=== PATIENT | female | born 1935 | race Caucasian/White ===

== ENCOUNTER 2020-07-23 07:03 | Day surgery (SDC) | payer OTHER ==
[~2020-07-23] VITALS: Ht 160 cm; Wt 77.1 kg
[~2020-07-23 07:03] MED LIST: ATO40T PO; METO25TA5 PO; [UNRECOGNIZED DRUG - CODE] PO
[2020-07-23] MEDS ORDERED: fentaNYL CITRATE 100 MCG/2 ML VL ONE (08:14)
[2020-07-23] MEDS ORDERED: MIDAZOLAM HCL 1MG/1ML-2 ML VIAL ONE (08:14)
[2020-07-23] MEDS ORDERED: diphenhdrAMINE HCL 50 MG/1 ML VL ONE (08:15)
[2020-07-23] MEDS ORDERED: LIDOCAINE VISCOUS 2% 15ML UD ONE (08:15)
== END 2020-07-23 11:15 | disposition home or self-care (01) ==
LOC: CATH 07:03
PROVIDERS: ATTEND Internal Medicine
DX: Z01.810 Encounter for preprocedural cardiovascular examination (principal); I34.1 Nonrheumatic mitral (valve) prolapse; R00.2 Palpitations; I27.20 Pulmonary hypertension, unspecified; M79.7 Fibromyalgia; Z68.30 Body mass index [BMI] 30.0-30.9, adult; Z20.822 Contact with and (suspected) exposure to COVID-19; Z88.8 Allergy status to other drugs, medicaments and biological substances; Z91.048 Other nonmedicinal substance allergy status
CPT/HCPCS: 93312; J1644; J2250; J3010; U0003; 99152

== ENCOUNTER 2023-05-15 08:47 | Inpatient (IN) | payer OTHER ==
[~2023-05-15] VITALS: Ht 160 cm; Wt 74.7 kg
[~2023-05-15 08:47] MED LIST changes: +NITR1SUS3 PO; -[UNRECOGNIZED DRUG - CODE] PO
[2023-05-15 09:20] LABS: Basophils # (auto) 0.1 10 ^3/uL (0-0.2); Basophils % (auto) 0.7 % (0.0-2.0); Eosinophils # (auto) 0 10 ^3/uL (0-0.8); Eosinophils % (auto) 0.4 % (0.0-7.0); Hematocrit 44.6 % (36.0-46.0); Hemoglobin 14.7 g/dL (12.2-16.2); Lymphocytes # (auto) 0.9 10 ^3/uL (0.4-5.4); Lymphocytes % (auto) 8.9 % (10.0-50.0); Mean Corpuscular Hemoglobin 27.5 pg (28.0-32.0); Mean Corpuscular Hgb Conc. 33.1 g/dL (32.0-36.0); Monocytes # (auto) 0.6 10 ^3/uL (0-1.3); Monocytes % (auto) 5.6 % (0.0-12.0); Neutrophils # (auto) 8.4 10 ^3/uL (1.6-8.6); Neutrophils % (auto) 84.4 % (37.0-80.0); Red Blood Cells 5.37 10^6/uL (4.0-5.20)
[2023-05-15 09:35] LABS: Alanine Aminotransferase 10 U/L (7-40); Albumin 4.7 g/dL (3.2-4.8); Alkaline Phosphatase 67 U/L (46-116); Anion Gap 8 (5-15); Aspartate Aminotransferase 16 U/L (13-40); BUN/Creatinine Ratio 24.7 (10.0-20.0); Bilirubin, Total 1.7 mg/dL (0.2-1.0); Blood Urea Nitrogen 18 mg/dL (9-23); Calcium 9.9 mg/dL (8.5-10.1); Carbon Dioxide 26 mmol/L (20-30); Chloride 105 mmol/L (98-107); Glucose 111 mg/dL (74-106); Potassium 3.7 mmol/L (3.5-5.1); Sodium 139 mmol/L (136-145); Total Protein 6.7 g/dL (5.7-8.2)
[2023-05-15 09:36] LABS: INR 1.09 (0.9-1.15); Partial Thromboplastin Time 31.5 SEC (24.5-34.5); Prothrombin Time 11.4 sec (9.3-11.8)
[2023-05-15] MEDS ORDERED: NITROGLYCERIN 0.4 MG SL TAB SL ONE (09:45)
[2023-05-15 10:14] VITALS: PULSE 70; RESP 16; O2SAT 98
[2023-05-15 10:47] LABS: Magnesium 1.9 mg/dL (1.6-2.6)
[2023-05-15] MEDS ORDERED: FUROSEMIDE 20 MG/2 ML VIAL IV ONE (12:30)
[2023-05-15 14:39] LABS: Urine Bacteria NONE SEEN /hpf (None Seen); Urine Blood Negative /uL (Negative); Urine Clarity Clear (Clear); Urine Color Colorless (Yellow); Urine Protein, UAD Negative (Negative); Urine Specific Gravity 1.005 (1.001-1.035); Urine Urobilinogen Normal (Negative); Urine WBC <1 /hpf (0 - 5); Urine pH 6.5 (5.0-8.0)
[2023-05-15] MEDS ORDERED: ONDANSETRON HCL 4 MG/2 ML VIAL IV PRN (16:45)
[2023-05-15] MEDS ORDERED: NITROGLYCERIN 0.4 MG SL TAB SL PRN (16:45)
[2023-05-15] MEDS ORDERED: MORPHINE SULFATE INJ 2 MG/ml SYRG IV PRN ×2 (16:45)
[2023-05-15] MEDS ORDERED: ACETAMINOPHEN 325 MG TAB PO PRN (16:45)
[2023-05-15] MEDS ORDERED: HYDROcodone-ACET 5/325MG TAB PO PRN (16:45)
[2023-05-15 18:50] VITALS: PULSE 93; RESP 18; O2SAT 95
[2023-05-15] MEDS ORDERED: TRIA75TA55 PO (19:52)
[2023-05-15] MEDS ORDERED: APIX2.5T PO (19:52)
[2023-05-15] MEDS ORDERED: ROSU20TA14 PO (19:52)
[2023-05-15] MEDS ORDERED: HYDR-4227 PO (19:52)
[2023-05-15 20:00] VITALS: PULSE 106; PULSE 49; RESP 18; O2SAT 94
[2023-05-15 22:00] VITALS: BP 106/44; PULSE 87; RESP 20; TEMP 97.6; O2SAT 94
[2023-05-15] MEDS ORDERED: ENOXAPARIN SOD 100 MG/1 ML SYRINGE SC ONE (23:45)
[2023-05-16] VITALS (8 sets, daily range): BP systolic 96–129; BP diastolic 52–62; PULSE 59–83; RESP 16–20; TEMP 96–98.7; O2SAT 92–98
[2023-05-16] MEDS ORDERED: AMIODARONE 450mg/250ml AE 250 ML IV SCH (00:45)
[2023-05-16] MEDS ORDERED: AMIODARONE BOLUS KIT 100 ML IV ONE (00:45)
[2023-05-16 01:04] LABS: Alanine Aminotransferase 11 U/L (7-40); Albumin 4.2 g/dL (3.2-4.8); Alkaline Phosphatase 62 U/L (46-116); Calcium 9.1 mg/dL (8.7-10.4); Carbon Dioxide 22 mmol/L (20-30); Chloride 107 mmol/L (98-107); Glucose 108 mg/dL (74-106); Potassium 3.2 mmol/L (3.5-5.1); Sodium 139 mmol/L (136-145)
[2023-05-16 01:05] LABS: Anion Gap 10 (5-15); Aspartate Aminotransferase 15 U/L (13-40); BUN/Creatinine Ratio 21.2 (10.0-20.0); Bilirubin, Total 1.8 mg/dL (0.2-1.0); Blood Urea Nitrogen 18 mg/dL (9-23); Total Protein 6.1 g/dL (5.7-8.2)
[2023-05-16] MEDS ORDERED: POTASSIUM CHL 20 Meq TABLET PO ONE (05:45)
[2023-05-16] MEDS: AMIODARONE 450mg/250ml AE 250 ML IV SCH (07:21)
[2023-05-16] MEDS ORDERED: ENOXAPARIN SOD 40 MG/0.4 ML SYRINGE SC SCH (10:00)
[2023-05-16] MEDS ORDERED: ENOXAPARIN SOD 80 MG/0.8ML SYRINGE SC SCH (10:00)
[2023-05-16] MEDS: ATORVASTATIN 20 MG TAB PO SCH (10:57)
[2023-05-16] MEDS: METOPROLOL SUCCINATE XL 50 MG TAB PO SCH (10:59)
[2023-05-16] MEDS: APIXABAN 5 MG TAB PO SCH (21:16)
[2023-05-17] VITALS (7 sets, daily range): BP systolic 103–140; BP diastolic 58–89; PULSE 51–106; RESP 16–22; TEMP 98–98.7; O2SAT 92–96
[2023-05-17] MEDS: AMIODARONE 450mg/250ml AE 250 ML IV SCH (02:12)
[2023-05-17] MEDS: ATORVASTATIN 20 MG TAB PO SCH (09:56)
[2023-05-17] MEDS: APIXABAN 5 MG TAB PO SCH (09:56)
[2023-05-17] MEDS: METOPROLOL SUCCINATE XL 50 MG TAB PO SCH (09:58)
[2023-05-17] MEDS ORDERED: AMIO200T33 PO (14:51)
[2023-05-17] MEDS ORDERED: APIX5TAB PO (14:51)
[2023-05-17] MEDS ORDERED: AMIODARONE HCL 200 MG TAB PO SCH (15:00)
== END 2023-05-17 18:20 | disposition home or self-care (01) | DRG 309 ==
LOC: ER 08:47 → EDBD 08:47 → EDUNIT# 08:47 → TELE 16:43 → TELE-WESTW 18:32
PROVIDERS: ADMIT Internal Medicine; ATTEND Internal Medicine
DX: I48.20 Chronic atrial fibrillation, unspecified (principal); I50.32 Chronic diastolic (congestive) heart failure; E78.5 Hyperlipidemia, unspecified; I11.0 Hypertensive heart disease with heart failure; I25.10 Atherosclerotic heart disease of native coronary artery without angina pectoris; I25.2 Old myocardial infarction; Z79.899 Other long term (current) drug therapy; Z80.6 Family history of leukemia; Z80.7 Family history of other malignant neoplasms of lymphoid, hematopoietic and related tissues; Z80.8 Family history of malignant neoplasm of other organs or systems; Z82.49 Family history of ischemic heart disease and other diseases of the circulatory system; Z95.5 Presence of coronary angioplasty implant and graft
CPT/HCPCS: 36415; 71045; 80053; 81001; 83735; 83880; 84484; 85025; 85610; 85730; 93005; 93306; 97110; 97116; 97163; 97530; G0378

== ENCOUNTER 2024-08-24 09:42 | Emergency (ER) | payer OTHER ==
[~2024-08-24] VITALS: Ht 154.9 cm; Wt 45.5 kg
[~2024-08-24 09:42] MED LIST changes: +AMIO200T33 PO; +APIX5TAB PO; -ATO40T PO; +ATOR-507 PO; +HYDR-2792 PO; -NITR1SUS3 PO; +ROSU20TA14 PO; +TRIA75TA55 PO
--- NOTE | 2024-08-24 10:45 | ED.PDOC ---
History of Present Illness HPI Comments 89Y F with PMHx Afib, HTN, TX, and blood clot in knee presents to ED via EMS with chief complaint rt foot pain x yesterday. Pt denies chest pain, SOB, n/v/d, abd pain, and all urinary s/s. Per EMS, son is worried about worsening paranoia and delusion. No other symptoms or history reported. Chief Complaint: Lower Extremity Time Seen by MD: 10:12 Primary Care Provider: CAMMOR Reviewed Notes: Nurses Notes, Pie Maker Machine Notes, Medications, Allergies Allergies: Coded Allergies: Bupropion (Verified Allergy, Intermediate, 05/15/23) Uncoded Allergies: TAPE (Allergy, Unknown, 05/17/23) Home Meds Active Scripts Apixaban Base (ELIQUIS) 5 Mg Tab, 5 MG PO BID, #60 TAB Prov:TYRON MAC MD 05/17/23 Amiodarone Hcl (Amiodarone Hcl) 200 Mg Tab, 200 MG PO DAILY, #30 TAB Prov:TYRON MAC MD 05/17/23 Reported Medications Triamterene & Hydrochlorothiaz (Maxzide) 1 Tab Tab, 1 TAB PO DAILY, #30 TAB 5 Refills Triamterene 37.5 MG/ HCTZ 25 MG 05/15/23 Rosuvastatin Calcium (Crestor) 20 Mg Tab, 1 TAB PO HS, #30 TAB 5 Refills 05/15/23 Hydralazine Hcl (Hydralazine Hcl) 10 Mg Tab, 10 MG PO BIDPRN for SBP> 150 for 30 Days, MG 05/15/23 Atorvastatin Calcium (Lipitor) 40 Mg Tab, 40 MG PO DAILY, TAB 07/20/20 Metoprolol Tartrate (Metoprolol Tartrate) 25 Mg Tab, 50 MG PO BID for 30 Days, MG 07/20/20 Information Source: Patient, Emergency Med Personnel Mode of Arrival: EMS Severity: Mild Timing: Days Duration: Since onset Prehospital treatment: None Past Medical History PAST MEDICAL HISTORY: AFIB, HTN, [place] Surgical History: Unobtainable SET UP TECHNICIAN History: Denies all SET UP TECHNICIAN Hx Family History Family History: Reviewed,noncontributory to illness, No family hx of Cancer, No family hx of DM, No family hx of Heart justin, No family hx of HTN, No family hx ofKidney justin, No family hx of Liver justin, No family hx of Lung justin, No family hx of Stroke Social History Smoker: Non-Smoker Alcohol: Denies ETOH Use Drugs: Denies Drug Use Lives In: Home Constitutional: denies: chills, diaphoresis, fatigue, fever, malaise, sweats, weakness, others EENTM: denies: blurred vision, double vision, ear bleeding, ear discharge, ear drainage, ear pain, ear ringing, eye pain, eye redness, hearing loss, mouth pain, mouth swelling, nasal discharge, nose bleeding, nose congestion, nose pain, photophobia, tearing, throat pain, throat swelling, voice changes, others Respiratory: denies: cough, hemoptysis, orthopnea, SOB at rest, shortness of breath, SOB with excertion, stridor, wheezing, others Cardiovascular: denies: chest pain, dizzy spells, diaphoresis, Dyspnea on e xertion, edema, irregular heart beat, left arm pain, lightheadedness, palpitations, PND, syncope, others Gastrointestinal: denies: abdomen distended, abdominal pain, blood streaked bowels, constipated, diarrhea, dysphagia, difficulty swallowing, hematemesis, melena, nausea, poor appetite, poor fluid intake, rectal bleeding, rectal pain, vomiting, others Genitourinary: denies: abnormal vagina bleeding, burning, dyspareunia, dysuria, flank pain, frequency, hematuria, incontinence, pain, , vagina discharge, urgency, others Neurological: denies: dizziness, fainting, headache, left sided numbness, left sided weakness, numbness, paresthesia, pre-existing deficit, right sided numbness, right sided weakness, seizure, speech problems, tingling, tremors, weakness, others Musculoskeletal: reports: others (rt foot pain); denies: back pain, gout, joint pain, joint swelling, muscle pain, muscle stiffness, neck pain Integumetry: denies: bruises, change in color, change in hair/nails, dryness, laceration, lesions, lumps, rash, wounds, others Allergic/Immunocompromised: denies: Difficulty Healing, Frequent Infections, Hives, Itching, others Hematologic/Lymphatic: denies: anemia, blood clots, easy bleeding, easy bruising, swollen glands, others Endocrine: denies: excessive hunger, excessive sweating, excessive thirst, excessive urination, flushing, intolerance to cold, intolerance to heat, unexplained weight gain, unexplained weight loss, others Psychiatric: denies: anxiety, bipolar disorder, depression, hopeless, panic disorder, schizophrenia, sleepless, suicidal, others All Other Systems: Reviewed and Negative Physical Exam General Appearance: No Apparent Distress, Normal HEENT: Normal ENT Inspection, Pharynx Normal, TMs Normal Neck: Full Range of Motion, Non-Tender, Normal, Normal Inspection Respiratory: Chest Non-Tender, Lungs Clear, No Accessory Muscle Use, No Respiratory Distress, Normal Breath Sounds Cardiovascular: No Edema, No JVD, No Murmur, No Gallop, Normal Peripheral Pulses, Regular Rate/Rhythm Breast Exam: Deferred Gastrointestinal: No Organomegaly, Non Tender, No Pulsatile Mass, Normal Bowel Sounds, Soft Genitalia: Deferred Pelvic: Deferred Rectal: Deferred Extremities: No calf tenderness, Normal capillary refill, Normal inspection, Normal range of motion, Non-tender, No pedal edema Musculoskeletal : Location: Right Extremity Location: Foot Apperance: Tenderness Neurologic: Alert, structural layout worker II-XII nml as Tested, No Motor Deficits, Normal Affect, Normal Mood, No Sensory Deficits Cerebellar Function: NOT DONE Reflexes: NOT DONE Skin: Dry, Normal Color, Warm Lymphatic: No Adenopathy Was a procedure done? Was a procedure done?: No Differential Dx Considerations may include: Muscle strain, fracture, sprain X-Ray, Labs, Meds, VS Vital Signs Date Time Temp Pulse Resp B/P (MAP) Pulse Ox O2 Delivery O2 Flow Rate FiO2 08/24/24 13:48 70 16 101/51 (68) 97 08/24/24 12:09 97.7 72 18 94/45 (61) 97 97.7 08/24/24 09:42 97.0 71 18 113/54 (73) 100 97.0 Lab Test 08/24/24 13:55 08/24/24 12:04 08/24/24 10:35 Range/Units Troponin I High Sensitivity 3 L 4 4 </=34 ng/L White Blood Count 8.1 4.4-10.8 10^3/uL Red Blood Count 4.64 4.0-5.20 10^6/uL Hemoglobin 13.2 12.2-16.2 g/dL Hematocrit 39.5 36.0-46.0 % Mean Corpuscular Volume 85.1 80.0-100.0 fL Mean Corpuscular Hemoglobin 28.3 28.0-32.0 pg Mean Corpuscular Hemoglobin Concent 33.3 32.0-36.0 g/dL Red Cell Distribution Width 14.4 H 11.8-14.3 % Platelet Count 232 140-450 10^3/uL Mean Platelet Volume 9.1 6.9-10.8 fL Neutrophils (%) (Auto) 85.6 H 37.0-80.0 % Lymphocytes (%) (Auto) 5.5 L 10.0-50.0 % Monocytes (%) (Auto) 7.9 0.0-12.0 % Eosinophils (%) (Auto) 0.4 0.0-7.0 % Basophils (%) (Auto) 0.6 0.0-2.0 % Neutrophils # (Auto) 7.0 1.6-8.6 10 ^3/uL Lymphocytes # (Auto) 0.4 0.4-5.4 10 ^3/uL Monocytes # (Auto) 0.6 0-1.3 10 ^3/uL Eosinophils # (Auto) 0 0-0.8 10 ^3/uL Basophils # (Auto) 0 0-0.2 10 ^3/uL Nucleated Red Blood Cells 0.0 % Sodium Level 137 136-145 mmol/L Potassium Level 3.8 3.5-5.1 mmol/L Chloride Level 103 98-107 mmol/L Carbon Dioxide Level 28 20-31 mmol/L Anion Gap 6 5-15 Blood Urea Nitrogen 24 H 9-23 mg/dL Creatinine 0.94 0.550-1.02 mg/dL Glomerular Filtration Rate Calc 58 >90 mL/min BUN/Creatinine Ratio 25.5 H 10.0-20.0 Serum Glucose 101 74-106 mg/dL Lactic Acid Level 0.9 0.4-2.0 mmol/L Calcium Level 9.3 8.7-10.4 mg/dL Total Bilirubin 1.2 H 0.2-1.0 mg/dL Aspartate Amino Transferase (AST) 70 H 13-40 U/L Alanine Aminotransferase (ALT) 83 H 7-40 U/L Alkaline Phosphatase 67 46-116 U/L Total Protein 6.7 5.7-8.2 g/dL Albumin 4.2 3.2-4.8 g/dL Lipase 30 12-53 U/L Current Medications Medications (Trade) Dose Ordered Sig/Nikhil Route Start Time Stop Time Status Last Admin Acetaminophen/ Hydrocodone Bitart (Viburnum 5/325MG Tab) 1 tab ONCE ONCE PO 08/24/24 10:30 08/24/24 10:32 DC 08/24/24 12:15 [place] [address] Ph: [phone] DIAGNOSTIC IMAGING Diagnostic Imaging Report : [id number] Signed PATIENT: TRAY KHAN ACCT: [id number] UNIT: [id number] : 1935 LOC: ER ROOM / BED: / AGE / SEX: 89 / F ADM STATUS: REG ER SERVICE 102 ORDERING PHYSICIAN: MP KHAN MD PROCEDURE(s): RFOOT - R FOOT 3 VIEW XRAY REASON: right foot pain ORDER NUMBER(s): [id number], ACCESSION NUMBER(s): [id number] CLINICAL INDICATION: right foot pain TECHNIQUE: 3 radiographic views of the right foot were obtained. Comparison: None FINDINGS/IMPRESSION: Postsurgical changes are visualized in the 1st proximal phalanx. Small plantar and posterior calcaneal enthesophyte. 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 ATED BY: YUAN BOWERS MD DICTATED DATE/TIME: 08/24/24 105 SIGNED BY: YUAN BOWERS MD SIGNED DATE/TIME: 08/24/24 105 CC: [place] [address] Ph: [phone] DIAGNOSTIC IMAGING Diagnostic Imaging Report : [id number] Signed PATIENT: TRAY KHAN ACCT: [id number] UNIT: [id number] : 1935 LOC: ER ROOM / BED: / AGE / SEX: 89 / F ADM STATUS: REG ER SERVICE 102 ORDERING PHYSICIAN: MP KHAN MD PROCEDURE(s): CXRP - CHEST PORTABLE REASON: right foot pain ORDER NUMBER(s): [id number], ACCESSION NUMBER(s): [id number] EXAM: XY CHEST PORTABLE HISTORY: right foot pain 89-year-old female with chest pain. COMPARISON: XY CHEST XRAY 1 VIEW on DOS: 05/15/23; CT scan of the chest dated 07/22/2024 was not made available on the PACS system for viewing. TECHNIQUE: Portable upright AP view of the chest was performed. FINDINGS: No pneumothorax, consolidative infiltrates, or pulmonary edema. The heart is enlarged. Mitral clip is noted. There is thoracic spondylosis and dextroscoliosis. IMPRESSION: 1. No acute intrathoracic process. 2. Cardiomegaly and mitral clip. ATED BY: FARIBA HORAN MD DICTATED DATE/TIME: 08/24/24 1059 SIGNED BY: FARIBA HORAN MD SIGNED DATE/TIME: 08/24/24 1059 CC: Time of 1ST Reevaluation: 10:42 Reevaluation 1ST: Unchanged Patient Education/Counseling: Diagnosis, Treatment Family Education/Counseling: No Family Present Departure 1 Departure Time of Disposition: 15:47 (Patient likely with plantar fasciitis. Patient's workup is otherwise benign. Discharge patient home with outpatient follow up) Impression: Primary Impression: Plantar fasciitis of right foot Disposition: 01 HOME / SELF CARE / HOMELESS Condition: Stable Referrals: ADRIANA KUMAR MD Additional Instructions: You likely have inflammation of your foot. For pain you can take the followinam: Ibuprofen 400mg with food Noon: Acetaminophen 1000mg 4pm: Ibuprofen 400mg with food 8pm: Acetaminophen 1000mg You were referred to orthopedics. Please call for an appointment. You should follow up with your regular doctor within one week to ensure you are doing better. If your symptoms worsen or you have any other concerns then please return to the ER Discharged With: Self Critical Care Note Critical Care Time?: No Stability Stability form required: No Heart Score Heart Score: Heart Score Response (Comments) Value History N/A 0 EKG N/A 0 Age N/A 0 Risk Factors N/A 0 Troponin N/A 0 Total 0 I personally scribed for MP KHAN MD ([email or web address]) on 08/24/24 at 10:45. Electronically submitted by Isa Fragoso ([facility]). I personally scribed for MP KHAN MD ([email or web address]) on 08/24/24 at 11:12. Electronically submitted by Isa Fragoso ([facility]). MP KHAN MD Aug 24, 2024 10:45
--- NOTE | 2024-08-24 10:57 | DVH ---
CLINICAL INDICATION: right foot pain TECHNIQUE: 3 radiographic views of the right foot were obtained. Comparison: None FINDINGS/IMPRESSION: Postsurgical changes are visualized in the 1st proximal phalanx. Small plantar and posterior calcane al enthesophyte. 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
--- NOTE | 2024-08-24 11:02 | DVH ---
EXAM: XY CHEST PORTABLE HISTORY: right foot pain 89-year-old female with chest pain. COMPARISON: XY CHEST XRAY 1 VIEW on DOS: 05/15/23; CT scan of the chest dated 07/22/2024 was not made a vailable on the PACS system for viewing. TECHNIQUE: Portable upright AP view of the chest was performed. FINDINGS: No pneumothorax, consolidative infiltrates, or pulmonary edema. The heart is enlarged. Mitral clip i s noted. There is thoracic spondylosis and dextroscoliosis. IMPRESSION: 1. No acute intrathoracic process. 2. Cardiomegaly and mitral clip.
[2024-08-24 11:06] LABS: Basophils # (auto) 0 10 ^3/uL (0-0.2); Basophils % (auto) 0.6 % (0.0-2.0); Eosinophils # (auto) 0 10 ^3/uL (0-0.8); Eosinophils % (auto) 0.4 % (0.0-7.0); Hematocrit 39.5 % (36.0-46.0); Hemoglobin 13.2 g/dL (12.2-16.2); Lymphocytes # (auto) 0.4 10 ^3/uL (0.4-5.4); Lymphocytes % (auto) 5.5 % (10.0-50.0); Mean Corpuscular Hemoglobin 28.3 pg (28.0-32.0); Mean Corpuscular Hgb Conc. 33.3 g/dL (32.0-36.0); Mean Corpuscular Volume 85.1 fL (80.0-100.0); Monocytes # (auto) 0.6 10 ^3/uL (0-1.3); Monocytes % (auto) 7.9 % (0.0-12.0); Neutrophils % (auto) 85.6 % (37.0-80.0); Platelet Count (auto) 232 10^3/uL (140-450); Red Blood Cells 4.64 10^6/uL (4.0-5.20); Red Cell Distribution Width 14.4 % (11.8-14.3); White Blood Cell 8.1 10^3/uL (4.4-10.8)
[2024-08-24 11:16] LABS: Albumin 4.2 g/dL (3.2-4.8); Alkaline Phosphatase 67 U/L (46-116); Anion Gap 6 (5-15); BUN/Creatinine Ratio 25.5 (10.0-20.0); Calcium 9.3 mg/dL (8.7-10.4); Carbon Dioxide 28 mmol/L (20-31); Chloride 103 mmol/L (98-107); Glucose 101 mg/dL (74-106); Lipase 30 U/L (12-53); Potassium 3.8 mmol/L (3.5-5.1); Sodium 137 mmol/L (136-145); Total Protein 6.7 g/dL (5.7-8.2)
[2024-08-24 11:17] LABS: Bilirubin, Total 1.2 mg/dL (0.2-1.0)
[2024-08-24 11:18] LABS: Alanine Aminotransferase 83 U/L (7-40); Aspartate Aminotransferase 70 U/L (13-40); Blood Urea Nitrogen 24 mg/dL (9-23)
[2024-08-24] MEDS: HYDROcodone-ACET 5/325MG TAB PO ONE (12:15)
[2024-08-24 16:38] VITALS: BP 137/78; PULSE 78; RESP 17; TEMP 98.7; O2SAT 97
== END 2024-08-24 16:43 | disposition home or self-care (01) ==
LOC: ER 09:42 → EDBD 09:42 → EDUNIT# 09:42 → ER 16:40
DX: M72.2 Plantar fascial fibromatosis (principal); I48.91 Unspecified atrial fibrillation; I10 Essential (primary) hypertension; I21.9 Acute myocardial infarction, unspecified; Z79.01 Long term (current) use of anticoagulants; Z79.899 Other long term (current) drug therapy; Z88.8 Allergy status to other drugs, medicaments and biological substances
CPT/HCPCS: 36415; 71045; 73630; 80053; 83605; 83690; 84484; 85025

== ENCOUNTER 2024-11-27 10:42 | Inpatient (IN) | payer OTHER ==
[~2024-11-27] VITALS: Ht 160 cm; Wt 67.1 kg
--- NOTE | 2024-11-27 12:28 | ED.PDOC ---
History of Present Illness HPI Comments 89 year old female presents to the ED with a chief complaint of generalized weakness onset 3 days. Patient states for the past 3 days she has been experiencing generalized weakness, loss of appetite, unable to sleep. Patient states she is currently on Eliquis. September 2024, patient broke her RT ankle, since then has slowly been declining, according to patient's son. PMHx ME, a-fib, fibromyalgia, HTN. Denies chest pain, dizziness, nausea, vomiting, abdominal pain, fevers, chills. No other symptoms or modifying factors present at this time. Chief Complaint: General Weakness Time Seen by MD: 11:35 Primary Care Provider: GENAMOR Reviewed Notes: Medications, Allergies Allergies: Coded Allergies: Bupropion (Verified Allergy, Intermediate, 05/15/23) Uncoded Allergies: TAPE (Allergy, Unknown, 05/17/23) Home Meds Active Scripts Apixaban Base (ELIQUIS) 5 Mg Tab, 5 MG PO BID, #60 TAB Prov:TYRON MAC MD 05/17/23 Amiodarone Hcl (Amiodarone Hcl) 200 Mg Tab, 200 MG PO DAILY, #30 TAB Prov:TYRON MAC MD 05/17/23 Reported Medications Triamterene & Hydrochlorothiaz (Maxzide) 1 Tab Tab, 1 TAB PO DAILY, #30 TAB 5 Refills Triamterene 37.5 MG/ HCTZ 25 MG 05/15/23 Rosuvastatin Calcium (Crestor) 20 Mg Tab, 1 TAB PO HS, #30 TAB 5 Refills 05/15/23 Hydralazine Hcl (Hydralazine Hcl) 10 Mg Tab, 10 MG PO BIDPRN for SBP> 150 for 30 Days, MG 05/15/23 Atorvastatin Calcium (Lipitor) 40 Mg Tab, 40 MG PO DAILY, TAB 07/20/20 Metoprolol Tartrate (Metoprolol Tartrate) 25 Mg Tab, 50 MG PO BID for 30 Days, MG 07/20/20 Information Source: Patient, Relative (Child) Mode of Arrival: Wheelchair Severity: Moderate Timing: Days Duration: Since onset Prehospital treatment: None Past Medical History PAST MEDICAL HISTORY: AFIB, HTN, [place] Past Medical History (Other): fibromyalgia Surgical History: [employer] 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 MILITARY PAY CLERK Hx Family History Family History: Reviewed,noncontributory to illness, No family hx of Cancer, No family hx of DM, No family hx of Heart justin, No family hx of HTN, No family hx ofKidney justin, No family hx of Liver justin, No family hx of Lung justin, No family hx of Stroke Social History Smoker: Non-Smoker Alcohol: Denies ETOH Use Drugs: Denies Drug Use Lives In: Home Constitutional: reports: weakness; denies: chills, diaphoresis, fatigue, fever, malaise, sweats, others EENTM: denies: blurred vision, double vision, ear bleeding, ear discharge, ear drainage, ear pain, ear ringing, eye pain, eye redness, hearing loss, mouth pain, mouth swelling, nasal discharge, nose bleeding, nose congestion, nose pain, photophobia, tearing, throat pain, throat swelling, voice changes, others Respiratory: denies: cough, hemoptysis, orthopnea, SOB at rest, shortness of breath, SOB with excertion, stridor, wheezing, others Cardiovascular: denies: chest pain, dizzy spells, diaphoresis, Dyspnea on exertion, edema, irregular heart beat, left arm pain, lightheadedness, pa lpitations, PND, syncope, others Gastrointestinal: reports: poor appetite; denies: abdomen distended, abdominal pain, blood streaked bowels, constipated, diarrhea, dysphagia, difficulty swallowing, hematemesis, melena, nausea, poor fluid intake, rectal bleeding, rectal pain, vomiting, others Genitourinary: denies: abnormal vagina bleeding, burning, dyspareunia, dysuria, flank pain, frequency, hematuria, incontinence, pain, , vagina dis charge, urgency, others Neurological: reports: weakness; denies: dizziness, fainting, headache, left sided numbness, left sided weakness, numbness, paresthesia, pre-existing deficit, right sided numbness, right sided weakness, seizure, speech problems, tingling, tremors, others Musculoskeletal: denies: back pain, gout, joint pain, joint swelling, muscle pain, muscle stiffness, neck pain, others Integumetry: denies: bruises, change in color, change in hair/nails, dryness, laceration, lesions, lumps, rash, wounds, others Allergic/Immunocompromised: denies: Difficulty Healing, Frequent Infections, Hives, Itching, others Hematologic/Lymphatic: denies: anemia, blood clots, easy bleeding, easy bruising, swollen glands, others Endocrine: denies: excessive hunger, excessive sweating, excessive thirst, excessive urination, flushing, intolerance to cold, intolerance to heat, unexplained weight gain, unexplained weight loss, others Psychiatric: reports: sleepless; denies: anxiety, bipolar disorder, depression, hopeless, panic disorder, schizophrenia, suicidal, others All Other Systems: Reviewed and Negative Physical Exam General Appearance: Moderate Distress HEENT: Normal ENT Inspection, Pharynx Normal, TMs Normal Neck: Full Range of Motion, Non-Tender, Normal, Normal Inspection Respiratory: Chest Non-Tender, Lungs Clear, No Accessory Muscle Use, No Respiratory Distress, Normal Breath Sounds Cardiovascular: No Edema, No JVD, No Murmur, No Gallop, Normal Peripheral Pulses, Regular Rate/Rhythm Breast Exam: Deferred Gastrointestinal: No Organomegaly, Non Tender, No Pulsatile Mass, Normal Bowel Sounds, Soft Genitalia: Deferred Pelvic: Deferred Rectal: Deferred Extremities: No calf tenderness, Normal capillary refill, Normal inspection, Normal range of motion, Non-tender, No pedal edema Musculoskeletal : Apperance: Normal Neurologic: Alert, phlebotomy technician II-XII nml as Tested Cerebellar Function: NOT DONE Reflexes: NOT DONE Skin: Dry, Normal Color, Warm Lymphatic: No Adenopathy Was a procedure done? Was a procedure done?: No EKG EKG : Pulse Rate (adult): 65 Cardiac Rhythm: NSR Differential Dx Considerations may include: Anemia Electrolyte imbalance X-Ray, Labs, Meds, VS Vital Signs Date Time Temp Pulse Resp B/P (MAP) Pulse Ox O2 Delivery O2 Flow Rate FiO2 11/27/24 16:00 62 11/27/24 14:00 98.0 60 15 109/44 (65) 98 98.0 11/27/24 13:50 Room Air* 0 21 11/27/24 12:39 65 11/27/24 12:29 65 11/27/24 11:32 98.5 68 16 100/51 (67) 100 98.5 Lab Test 11/27/24 15:20 11/27/24 13:38 11/27/24 11:31 Range/Units Lactic Acid Level 1.0 0.4-2.0 mmol/L White Blood Count 13.1 H 4.4-10.8 10^3/uL Red Blood Count 4.89 4.0-5.20 10^6/uL Hemoglobin 13.4 12.2-16.2 g/dL Hematocrit 40.4 36.0-46.0 % Mean Corpuscular Volume 82.6 80.0-100.0 fL Mean Corpuscular Hemoglobin 27.4 L 28.0-32.0 pg Mean Corpuscular Hemoglobin Concent 33.2 32.0-36.0 g/dL Red Cell Distribution Width 14.8 H 11.8-14.3 % Platelet Count 202 140-450 10^3/uL Mean Platelet Volume 10.1 6.9-10.8 fL Neutrophils (%) (Auto) 86.8 H 37.0-80.0 % Lymphocytes (%) (Auto) 4.4 L 10.0-50.0 % Monocytes (%) (Auto) 8.2 0.0-12.0 % Eosinophils (%) (Auto) 0.1 0.0-7.0 % Basophils (%) (Auto) 0.5 0.0-2.0 % Neutrophils # (Auto) 11.4 H 1.6-8.6 10 ^3/uL Lymphocytes # (Auto) 0.6 0.4-5.4 10 ^3/uL Monocytes # (Auto) 1.1 0-1.3 10 ^3/uL Eosinophils # (Auto) 0 0-0.8 10 ^3/uL Basophils # (Auto) 0.1 0-0.2 10 ^3/uL Nucleated Red Blood Cells 0.0 % Sodium Level 138 136-145 mmol/L Potassium Level 4.1 3.5-5.1 mmol/L Chloride Level 101 98-107 mmol/L Carbon Dioxide Level 29 20-31 mmol/L Anion Gap 8 5-15 Blood Urea Nitrogen 21 9-23 mg/dL Creatinine 0.94 0.550-1.02 mg/dL Glomerular Filtration Rate Calc 58 >90 mL/min BUN/Creatinine Ratio 22.3 H 10.0-20.0 Serum Glucose 107 H 74-106 mg/dL Calcium Level 9.3 8.7-10.4 mg/dL Total Bilirubin 1.9 H 0.2-1.0 mg/dL Aspartate Amino Transferase (AST) 110 H 13-40 U/L Alanine Aminotransferase (ALT) 90 H 7-40 U/L Alkaline Phosphatase 67 46-116 U/L Troponin I High Sensitivity 3 L </=34 ng/L Total Protein 6.5 5.7-8.2 g/dL Albumin 4.2 3.2-4.8 g/dL POC Glucose 137 H 70-106 mg/dl Current Medications Medications (Trade) Dose Ordered Sig/Nikhil Route Start Time Stop Time Status Last Admin Sodium Chloride 1,000 ml @ 1,000 mls/hr Q1H ONCE IV 11/27/24 13:00 11/27/24 13:59 DC 11/27/24 13:33 Patient alert pain Complaining of generalized weakness. Vitals stable. Answering all questions. Liver profile elevated. WBC elevated. Hemoglobin within normal limits. Hypotension. Possible sepsis. Was given Zosyn. Was given Flagyl. CT scan of the abdomen. Explained to the patient. Continue monitoring. Time of 1ST Reevaluation: 12:05 Reevaluation 1ST: Unchanged Patient Education/Counseling: Diagnosis, Treatment, Prognosis Family Education/Counseling: Diagnosis, Treatment, Prognosis SEPSIS Sepsis Screen Date sepsis recognized/suspect: Nov 27, 2024 Time Sepsis recognized/suspect: 1041 Recent Procedure: No On Antibiotic Therapy: No Respiratory Rate >20: No Heart Rate >90: No Temp<36 C (96.8 F) or >38.3 C: No SBP <90 or MAP <65 mmHG: No New Acute Mental Status Change: No Is the patient on CPAP, BIPAP,: No Physician Orders Electrocardigram (11/27/24 12:38) Chest Portable (11/27/24 12:54) Blood Culture (11/27/24 15:12) Communication Order (11/27/24 15:12) Vital Signs Date Time Temp Pulse Resp B/P (MAP) Pulse Ox O2 Delivery O2 Flow Rate FiO2 11/27/24 16:00 62 11/27/24 14:00 98.0 60 15 109/44 (65) 98 98.0 11/27/24 13:50 Room Air* 0 21 11/27/24 12:39 65 11/27/24 12:29 65 11/27/24 11:32 98.5 68 16 100/51 (67) 100 98.5 Laboratory Tests Test 11/27/24 13:38 11/27/24 15:20 White Blood Count 13.1 10^3/uL (4.4-10.8) H Lactic Acid Level 1.0 mmol/L (0.4-2.0) Medications Medications Dose Ordered Sig/Nikhil Route Start Time Stop Time Status Last Admin Dose Admin Sodium Chloride 1,000 ml @ 1,000 mls/hr Q1H ONCE IV 11/27/24 13:00 11/27/24 13:59 DC 11/27/24 13:33 Departure 1 Departure Time of Disposition: 17:27 Impression: Primary Impression: Sepsis, unspecified organism Qualified Codes: A41.9 - Sepsis, unspecified organism Additional Impressions: Elevated liver enzymes Uncontrolled diabetes mellitus Qualified Codes: E13.65 - Other specified diabetes mellitus with hyperglycemia Disposition: ADMITTED INPATIENT Admit to: Med Surg Condition: Guarded Critical Care Note Critical Care Time?: No Stability Stability form required: No Heart Score Heart Score: Heart Score Response (Comments) Value History N/A 0 EKG N/A 0 Age N/A 0 Risk Factors N/A 0 Troponin N/A 0 Total 0 I personally scribed for SEBASTIÁN BUSH MD (MANSOOR) on 11/27/24 at 12:28. Electronically submitted by Adelia Shrestha ([email or web address]). I personally scribed for SEBASTIÁN BUSH MD (MANSOOR) on 11/27/24 at 12:29. Electronically submitted by Adelia Shrestha ([email or web address]). SEBASTIÁN BUSH MD Nov 27, 2024 12:28
[2024-11-27] MEDS: SODIUM CHLORIDE 0.9% 1,000 ML IV ONE ×3 (13:33→17:40)
--- NOTE | 2024-11-27 13:49 | DVH ---
XY CHEST PORTABLE, HISTORY: sob COMPARISON: XY CHEST PORTABLE on DOS: 08/24/24, XY CHEST XRAY 1 VIEW on DOS: 05/15/23 XY CHEST PORTABLE on DOS: 08/24/24, XY CHEST XRAY 1 VIEW on DOS: 05/15/23 TECHNICAL DATA: 1 view of the chest was obtained. FINDINGS: Lines and tubes: None Cardiomediastinal silhouette: normal Pulmonary vasculature: normal Lung expansion: normal Lung airspace: normal Lung interstitium: normal Pleura: normal Pneumothorax: no Bones: Unremarkable Other: no IMPRESSION: No acute intrathoracic abnormality.
[2024-11-27 13:52] LABS: Hematocrit 40.4 % (36.0-46.0); Hemoglobin 13.4 g/dL (12.2-16.2); Mean Corpuscular Hemoglobin 27.4 pg (28.0-32.0); Mean Corpuscular Volume 82.6 fL (80.0-100.0); Nucleated Red Blood Cells % 0.0 %
[2024-11-27 14:16] LABS: Albumin 4.2 g/dL (3.2-4.8); Alkaline Phosphatase 67 U/L (46-116); Anion Gap 8 (5-15); BUN/Creatinine Ratio 22.3 (10.0-20.0); Blood Urea Nitrogen 21 mg/dL (9-23); Calcium 9.3 mg/dL (8.7-10.4); Carbon Dioxide 29 mmol/L (20-31); Chloride 101 mmol/L (98-107); Potassium 4.1 mmol/L (3.5-5.1); Sodium 138 mmol/L (136-145); Total Protein 6.5 g/dL (5.7-8.2)
[2024-11-27 14:21] LABS: Alanine Aminotransferase 90 U/L (7-40); Bilirubin, Total 1.9 mg/dL (0.2-1.0); Glucose 107 mg/dL (74-106)
--- NOTE | 2024-11-27 16:45 | DVHHP2 ---
History of Present Illness Reason for Visit: Generalized weakness History of Present Illness 89-year-old female presents to the emergency department with a chief complaint of generalized weakness, with symptom onset approximately three days ago. The patient reports progressive weakness, poor appetite, and difficulty sleeping. She states that she is currently taking Eliquis. She also reports that she lives alone and is having increasingly difficult walking and performing her activities of daily living, especially since sustaining a right ankle fracture on September 27, 2024, after which she has experienced a gradual functional decline. Per the patient's son, she has a known medical history of fibromyalgia, atrial fibrillation, diastolic heart failure, hypertension, hyperlipidemia, hard of hearing, and chronic urinary tract infections. In the emergency department, initial workup reveals elevated WBC, elevated AST/ALT, and urinalysis is pending. The patient is also requesting child protective services social worker assistance to explore options for supportive placement, as she is no longer able to safely live alone. Past Medical History as Stated in HPI Past Surgical History PTCA Right ankle surgery Family History Reviewed, non-contributory to the management of this case. Past Social History The patient lives at home, denies smoking, alcohol or illicit drugs abuse. Review of Systems Constitutional: Yes: Weakness, Malaise; No: Fever, Chills, Sweats, Other Eyes: No: Pain, Vision change, Conjunctivae inflammation, Eyelid inflammation, Other, Redness ENT: No: Ear pain, Ear discharge, Nose pain, Nose discharge, Nose congestion, Mouth pain, Mouth swelling, Throat pain, Throat swelling, Other Respiratory: No: Cough, Dry, Shortness of breath, SOB with excertion, Wheezing, Hemoptysis, Pleuritic Pain, Sputum, Wheezing, Other Cardiovascular: No: Chest Pain, Palpitations, Orthopnea, Paroxysmal Noc. Dyspnea, Edema, Lt Headedness, Other Gastrointestinal: No: Nausea, Vomiting, Abdominal Pain, Diarrhea, Constipation, Melena, Hematochezia, Other Genitourinary: No Dysuria, No Frequency, No Incontinence, No Hematuria, No Retention, No Other Musculoskeletal: No: other, neck pain, shoulder pain, arm pain, back pain, hand pain, leg pain, foot pain Skin: No: Rash, Lesions, Jaundice, Bruising, Other Neurological: Weakness; No: Numbness, Incoordination, Change in speech, Confusion, Seizures, Other Allergies: Coded Allergies: Bupropion (Verified Allergy, Intermediate, 05/15/23) Uncoded Allergies: TAPE (Allergy, Unknown, 05/17/23) Medications Current Medications Medications Dose Ordered Sig/Nikhil Route Start Time Stop Time Status Last Admin Dose Admin Sodium Chloride 1,000 ml @ 60 mls/hr [id number] IV 11/27/24 16:45 UNV Enoxaparin Sodium 40 mg DAILY SC 11/28/24 10:00 UNV Ceftriaxone Sodium 50 ml @ 100 mls/hr DAILY@09 IV 11/28/24 09:00 UNV Amiodarone HCl 200 mg DAILY PO 11/28/24 10:00 UNV Apixaban 5 mg BID PO 11/27/24 22:00 UNV Metoprolol Tartrate 50 mg BID PO 11/27/24 22:00 UNV Patient Own Medication 40 mg DAILY PO 11/28/24 10:00 UNV Exam Vital Signs Vital Signs Date Time Temp Pulse Resp B/P (MAP) Pulse Ox O2 Delivery O2 Flow Rate FiO2 11/27/24 16:00 62 11/27/24 14:00 98.0 15 109/44 (65) 98 98.0 11/27/24 13:50 Room Air* 0 21 General Appearance: Alert, Oriented X3, Cooperative, mild distress, Other (Elderly female, alert, appears fatigued) HEENT: Atraumatic, PERRLA Respiratory: Clear to auscultation, Normal air movement Cardiovascular: Other (Irregularly irregular rhythm) Abdominal: Normal bowel sounds, Soft, No tenderness Extremities: No clubbing, No cyanosis Skin: No rashes, No breakdown Neuro: Normal speech Psych/Mental Status: Mental status NL Labs/Xrays Labs Test 11/27/24 15:20 11/27/24 13:38 11/27/24 11:31 Range/Units Lactic Acid Level 1.0 0.4-2.0 mmol/L White Blood Count 13.1 H 4.4-10.8 10^3/uL Red Blood Count 4.89 4.0-5.20 10^6/uL Hemoglobin 13.4 12.2-16.2 g/dL Hematocrit 40.4 36.0-46.0 % Mean Corpuscular Volume 82.6 80.0-100.0 fL Mean Corpuscular Hemoglobin 27.4 L 28.0-32.0 pg Mean Corpuscular Hemoglobin Concent 33.2 32.0-36.0 g/dL Red Cell Distribution Width 14.8 H 11.8-14.3 % Platelet Count 202 140-450 10^3/uL Mean Platelet Volume 10.1 6.9-10.8 fL Neutrophils (%) (Auto) 86.8 H 37.0-80.0 % Lymphocytes (%) (Auto) 4.4 L 10.0-50.0 % Monocytes (%) (Auto) 8.2 0.0-12.0 % Eosinophils (%) (Auto) 0.1 0.0-7.0 % Basophils (%) (Auto) 0.5 0.0-2.0 % Neutrophils # (Auto) 11.4 H 1.6-8.6 10 ^3/uL Lymphocytes # (Auto) 0.6 0.4-5.4 10 ^3/uL Monocytes # (Auto) 1.1 0-1.3 10 ^3/uL Eosinophils # (Auto) 0 0-0.8 10 ^3/uL Basophils # (Auto) 0.1 0-0.2 10 ^3/uL Nucleated Red Blood Cells 0.0 % Sodium Level 138 136-145 mmol/L Potassium Level 4.1 3.5-5.1 mmol/L Chloride Level 101 98-107 mmol/L Carbon Dioxide Level 29 20-31 mmol/L Anion Gap 8 5-15 Blood Urea Nitrogen 21 9-23 mg/dL Creatinine 0.94 0.550-1.02 mg/dL Glomerular Filtration Rate Calc 58 >90 mL/min BUN/Creatinine Ratio 22.3 H 10.0-20.0 Serum Glucose 107 H 74-106 mg/dL Calcium Level 9.3 8.7-10.4 mg/dL Total Bilirubin 1.9 H 0.2-1.0 mg/dL Aspartate Amino Transferase (AST) 110 H 13-40 U/L Alanine Aminotransferase (ALT) 90 H 7-40 U/L Alkaline Phosphatase 67 46-116 U/L Troponin I High Sensitivity 3 L </=34 ng/L Total Protein 6.5 5.7-8.2 g/dL Albumin 4.2 3.2-4.8 g/dL POC Glucose 137 H 70-106 mg/dl PROCEDURE(s): CXRP - CHEST PORTABLE REASON: sob ORDER NUMBER(s): [id number], ACCESSION NUMBER(s): [id number] XY CHEST PORTABLE, HISTORY: sob COMPARISON: XY CHEST PORTABLE on DOS: 08/24/24, XY CHEST XRAY 1 VIEW on DOS: XY CHEST PORTABLE on DOS: 08/24/24, XY CHEST XRAY 1 VIEW on DOS: 05/15/23 TECHNICAL DATA: 1 view of the chest was obtained. FINDINGS: Lines and tubes: None Cardiomediastinal silhouette: normal Pulmonary vasculature: normal Lung expansion: normal Lung airspace: normal Lung interstitium: normal Pleura: normal Pneumothorax: no Bones: Unremarkable Other: no IMPRESSION: No acute intrathoracic abnormality. SEPSIS Sepsis Screen Date sepsis recognized/suspect: Nov 27, 2024 Time Sepsis recognized/suspect: 1349 Recent Procedure: No On Antibiotic Therapy: No Respiratory Rate >20: No Heart Rate >90: No Temp<36 C (96.8 F) or >38.3 C: No SBP <90 or MAP <65 mmHG: No New Acute Mental Status Change: No Is the patient on CPAP, BIPAP,: No Physician Orders Electrocardigram (11/27/24 12:38) Chest Portable (11/27/24 12:54) Urinalysis (11/27/24 12:54) Blood Culture (11/27/24 15:12) Communication Order (11/27/24 15:12) Admit (11/27/24 16:39) Code Status (11/27/24 16:39) Sodium Chloride 0.9% (11/27/24 16:45) Enoxaparin Sodium (Lovenox) (11/28/24 10:00) Fall Risk Precautions In Place QSHIFT (11/27/24 16:39) Complete Blood Count (11/28/24 04:00) Comprehensive Metabolic Panel (11/28/24 04:00) Cardiac Diet-2gna,Lofat,Lochol (11/27/24 Dinner) Condition: Fair (11/27/24 16:39) Ceftriaxone 1gm/50ml D5w (Rocephin) (11/28/24 09:00) Ceftriaxone 1gm/50ml D5w (Rocephin) (11/27/24 16:45) Urine Bacterial Culture (11/27/24 16:39) * District Wire Chief Consult (11/27/24 ) Amiodarone Tablet (Cordarone Tablet) (11/28/24 10:00) Apixaban (Eliquis) (11/27/24 22:00) Metoprolol Tartrate Tablet (Lopressor Ta (11/27/24 22:00) (Nf) Atorvastatin Calcium (Lipitor) (11/28/24 10:00) Vital Signs Date Time Temp Pulse Resp B/P (MAP) Pulse Ox O2 Delivery O2 Flow Rate FiO2 11/27/24 16:00 62 11/27/24 14:00 98.0 60 15 109/44 (65) 98 98.0 11/27/24 13:50 Room Air* 0 21 11/27/24 12:39 65 11/27/24 12:29 65 11/27/24 11:32 98.5 68 16 100/51 (67) 100 98.5 Laboratory Tests Test 11/27/24 13:38 11/27/24 15:20 White Blood Count 13.1 10^3/uL (4.4-10.8) H Lactic Acid Level 1.0 mmol/L (0.4-2.0) Medications Medications Dose Ordered Sig/Nikhil Route Start Time Stop Time Status Last Admin Dose Admin Sodium Chloride 1,000 ml @ 1,000 mls/hr Q1H ONCE IV 11/27/24 13:00 11/27/24 13:59 DC 11/27/24 13:33 1,000 MLS/HR Assessment/Plan Assessment/Plan # Rule out Sepsis, possible UTI # leukocytosis * Admit to telemetry unit * UA pending * Empiric Antibiotic ceftriaxone * Blood and urine culture * IV fluid * Monitor for sepsis or underlying infection as cause of leukocytosis # generalized weakness/functional decline # possible failure to thrive * IV fluid and nutritional support * Physical therapy evaluation to assess current mobility and safety * Social service consult for placement assistance # elevated liver enzymes * Monitor liver function tests * avoid hepatotoxic agents # chronic AFib on amiodarone and DOAC # diastolic heart failure # hypertension # hyperlipidemia * Continue with antiarrhythmic and doac * Monitor * Continue with antihypertensive medication * Continue with statins # fibromyalgia * Continue with home meds DVT prophylaxis Medical plan discussed with patient, son at the bedside, and RN Plan discussed with: Patient, Son, Other (RN) My Orders Orders - EMORY TAYLOR Procedure Category Date Status Time Blood Culture MARK 11/27/24 In Process 15:12 Communication Order ORDERS 11/27/24 Transmitted 15:12 Admit ADMIT 11/27/24 Transmitted 16:39 Code Status CODE 11/27/24 Transmitted 16:39 Sodium Chloride 0.9% PHA 11/27/24 Logged 16:45 Enoxaparin Sodium PHA 11/28/24 Logged (Lovenox) 10:00 Fall Risk Precautions CHARU 11/27/[address] 16:39 Complete Blood Count LAB 11/28/24 Verified 04:00 Comprehensive LAB 11/28/24 Verified Metabolic Panel 04:00 Cardiac DIET 11/27/24 Transmitted Diet-2gna,Lofat,Lochol Dinner Condition: Fair CHARU 11/27/24 In Process 16:39 Ceftriaxone 1gm/50ml PHA 11/28/24 Logged D5w (Rocephin) 09:00 Ceftriaxone 1gm/50ml PHA 11/27/24 Logged D5w (Rocephin) 16:45 Urine Bacterial MARK 11/27/24 Logged Culture 16:39 * District Wire Chief CONS 11/27/24 Transmitted Consult Amiodarone Tablet PHA 11/28/24 Logged (Cordarone Tablet) 10:00 Apixaban (Eliquis) PHA 11/27/24 Logged 22:00 Metoprolol Tartrate PHA 11/27/24 Logged Tablet (Lopressor Ta 22:00 (Nf) Atorvastatin PHA 11/28/24 Logged Calcium (Lipitor) 10:00 Date of Service: Nov 27, 2024 Billing Provider: EMORY TAYLOR Common Visit Codes: [id number] INP/OBS CARE (HIGH) Consultation Codes: [id number] CONSULT <45MIN EMORY TAYLORP Nov 27, 2024 16:45
[2024-11-27 16:53] LABS: Urine Protein, UAD 1+ (Negative)
[2024-11-27] MEDS: SODIUM CHLORIDE 0.9% 1,000 ML IV SCH (17:42)
[2024-11-27] MEDS: cefTRIAXone 1GM/50ML D5W 50 ML IV ONE (17:52)
[2024-11-27 21:55] VITALS: BP 125/62; PULSE 63; RESP 18; TEMP 97.7; O2SAT 95
[2024-11-27] MEDS: APIXABAN 5 MG TAB PO SCH (22:46)
[2024-11-27] MEDS: ATORVASTATIN 20 MG TAB PO SCH (22:47)
[2024-11-27] MEDS: METOPROLOL TARTRATE 25 MG TAB PO SCH (22:47)
[2024-11-27 22:56] VITALS: BP 125/62; PULSE 63; RESP 16; TEMP 97.7; O2SAT 95
[2024-11-28] VITALS (8 sets, daily range): BP systolic 109–133; BP diastolic 55–74; PULSE 63–74; RESP 14–20; TEMP 97.5–98; O2SAT 80–97
[2024-11-28] MEDS ORDERED: LISI2.5T47 PO (02:07)
[2024-11-28] MEDS ORDERED: NITR-52 PO (02:09)
[2024-11-28] MEDS ORDERED: POTA8TAB38 PO (02:17)
[2024-11-28 07:22] LABS: Hematocrit 40.3 % (36.0-46.0); Hemoglobin 13.7 g/dL (12.2-16.2); Mean Corpuscular Hemoglobin 27.8 pg (28.0-32.0); Mean Corpuscular Volume 81.8 fL (80.0-100.0); Nucleated Red Blood Cells % 0.0 %
[2024-11-28 07:31] LABS: Albumin 4.3 g/dL (3.2-4.8); Alkaline Phosphatase 68 U/L (46-116); Anion Gap 10 (5-15); BUN/Creatinine Ratio 20.2 (10.0-20.0); Blood Urea Nitrogen 17 mg/dL (9-23); Calcium 9.8 mg/dL (8.7-10.4); Carbon Dioxide 26 mmol/L (20-31); Chloride 103 mmol/L (98-107); Potassium 3.6 mmol/L (3.5-5.1); Sodium 139 mmol/L (136-145); Total Protein 6.9 g/dL (5.7-8.2)
[2024-11-28 07:35] LABS: Alanine Aminotransferase 130 U/L (7-40); Bilirubin, Total 1.5 mg/dL (0.2-1.0); Glucose 72 mg/dL (74-106)
[2024-11-28] MEDS: cefTRIAXone 1GM/50ML D5W 50 ML IV SCH (08:40)
[2024-11-28] MEDS: AMIODARONE HCL 200 MG TAB PO SCH (08:40)
[2024-11-28] MEDS ORDERED: ENOXAPARIN SOD 40 MG/0.4 ML SYRINGE SC SCH (10:00)
--- NOTE | 2024-11-28 15:37 | DVH ---
Exam: CT CT AB PEL WO CON-NO ORAL OR IV History: colitis Comparison Study: None TECHNIQUE: Multidetector CT of the abdomen and pelvis without IV contrast. Axial, coronal and sagitta l multiplanar reformats were obtained from the axial data set by the technologist. Radiation Dose Information: CT Dose: CTDI volume is 9.68 mGy. Dose-length product is mGy*cm FINDINGS: Bibasilar atelectasis. Partially visualized heart is normal in size. Subcentimeter hypodense hepatic lesions are noted that are too small to characterize. Mild hepatomega ly. Mild splenomegaly. Pancreas and adrenal glands are unremarkable. Kidneys, ureters and urinary bladder unremarkable. Status post hysterectomy. Stomach is unremarkable. Small bowel loops unremarkable. Appendix is not definitely visualized. Moder ate amount of fecal material within the colon. Sigmoid diverticulosis without diverticulitis. No evidence of intraperitoneal free air or free fluid. There is significant fat stranding over the mainly left mid and lower abdominal mesenteric fat with a ssociated subcentimeter lymph nodes. Moderate to heavy atherosclerotic calcification of the aorta and bilateral iliacs. Tiny fat containing umbilical hernia. The soft tissues are unremarkable. No destructive osseous lesi ons are noted. Chronic anterior wedge deformity of T12 with T11-T12 anterior bridging osteophyte. 5 m m retropulsion of the posterior superior T12 vertebral body into the spinal canal causing mild spinal canal stenosis. Sclerotic focus over the right iliac bone represent a bone island with a blastic les ion not excluded. Diffuse demineralization. IMPRESSION: Mainly left-sided mid and lower abdominal mesenteric fat stranding with associated subcentimeter lymp h nodes which may represent mesenteric panniculitis in the right clinical setting with neoplasm /lymp hatic congestion not excluded. Moderate amount of fecal material within the colon. Sigmoid diverticulosis without diverticulitis. Additional findings as above.
--- NOTE | 2024-11-28 18:39 | DVHPNRES ---
Progress Note Date Seen: Nov 28, 2024 Resident Creating Document: VINICIO LARIOS RESIDENT Medical Necessity Reason Pt with a Central, PICC or Fol: No Subjective Review of Systems This is a 89-year-old female with past medical history of fibromyalgia, atrial fibrillation, hypertension, hyperlipidemia, uterine cancer, constipation, diastolic heart failure, arthritis, and recurrent UTIs came to the ED with chief complaint of generalized weakness, and fatigue which has worsened since the last 3 days. She also complains of poor appetite, lack of energy, insomnia, pain in her right ankle from a fall 3 months ago, she uses a electrical scooter for ambulation. She had a VT in May 2024 status post 2 stents, and a mitral valve clip placed, she was diagnosed with AFib 1 year ago, Her last UTI was 4 months ago and she uses nitrofurantoin daily. Past surgical history: PTCA status post 2 stents, hysterectomy with bilateral oophorectomy, Social history: Patient denies any smoking, alcohol, drug use Patient is seen at bedside. Patient appears alert x3, comfortable, states she feels better than yesterday, there are no overnight events. She feels fatigued, complains of bilateral leg pain, and states that she lost 25-30 lb he has over the last 6 months and she is very concerned of her weight loss. Urinalysis shows no signs of UTI. CT abdomen without contrast is ordered and shows Mainly left-sided mid and lower abdominal mesenteric fat stranding with associated subcentimeter lymph nodes which may represent mesenteric panniculitis in the right clinical setting with neoplasm /lymphatic congestion not excluded. Moderate amount of fecal material within the colon. Sigmoid diverticulosis without diverticulitis. Social service consult placed to explore options for supportive placement. Constitutional: states weight loss, no fever and chills. HEENT: Denies changes in vision and hearing. Respiratory: Denies shortness of breath and cough Cardiovascular: Denies chest discomfort or palpitations GI: Denies nausea, vomiting, Abdominal pain : Denies dysuria and urinary frequency. Musculoskeletal: states myalgias and joint pain Skin: Denies rash and pruritus. Neurological: Denies dizziness, headache, vision and has weakness, and hard of hearing Objective vital signs Vital Sign Date Time Temp Pulse Resp B/P (MAP) Pulse Ox O2 Delivery O2 Flow Rate FiO2 11/28/24 17:09 97.6 68 17 119/59 (79) 94 97.6 11/28/24 08:00 Room Air* 0 21 Total Intake and Output 11/27/24 11/27/24 11/28/24 15:00 23:00 07:00 Intake Total 340 ml Balance 340 ml medications Current Medications Medications Dose Ordered Sig/Nikhil Route Start Time Stop Time Status Last Admin Dose Admin Sodium Chloride 1,000 ml @ 60 mls/hr [id number] IV 11/27/24 16:45 11/28/24 07:51 60 MLS/HR Ceftriaxone Sodium 50 ml @ 100 mls/hr DAILY@09 IV 11/28/24 09:00 11/28/24 08:40 100 MLS/HR Amiodarone HCl 200 mg DAILY PO 11/28/24 10:00 11/28/24 08:40 200 MG Apixaban 5 mg BID PO 11/27/24 22:00 11/28/24 08:40 5 MG Metoprolol Tartrate 50 mg BID PO 11/27/24 22:00 11/27/24 22:47 50 MG Atorvastatin Calcium 40 mg HS PO 11/27/24 22:00 11/27/24 22:47 40 MG Examination General: Patient alert and oriented in person, place and time. Patient following commands. Fatigued HEENT: Normocephalic, atraumatic, moist mucous membranes Respiratory/pulmonary: Clear lungs bilaterally, vesicular murmurs present in almost all lung hutchinson, no associated crackles or wheezes. Cardiovascular: Normal heart sounds S1 and S2 with no associated murmurs Abdomen: Abdomen nondistended, there is no pain to palpation in any of the abdominal quadrants, no palpable masses. Extremities: There is no peripheral edema present at the lower extremities. Peripheral Pulses: 3+ Radial (R). 3+ Radial (L). 3+ Dorsalis pedis (R). 3+ Dorsalis pedis(L) Skin: No rashes or pruritus, there is no sacral edema present at this time. Neurological: Intact cranial nerves with no focal neurologic deficits laboratory and microbiology Laboratory Tests 11/28/24 04:45 Test 11/28/24 04:45 Range/Units Serum Glucose 72 L 74-106 mg/dL Microbiology Date/Time Source Procedure Growth Status 11/27/24 16:45 Voided Urine Urine Culture - Preliminary Resulted 7/20/25 15:38 Blood Blood Culture - Preliminary NO GROWTH AFTER 24 HOURS OF INCUBATION. Resulted Problem List/Assessment/Plan Problem List/Assessment/Plan #Sepsis likely secondary to colitis - IV ceftriaxone - urinalysis show no signs of UTI - Chest xray shows No acute intrathoracic abnormality. # Generalized weakness due to functional decline - IV fluids and nutritional support - # fibromyalgia - Continue home meds #hyperlipidemia - continue home meds # hypertension - continue home meds #Chronic Afib - Amodarone and DOAC - Eliquis # Hyperbilirubinemia with transaminitis likely secondary to malignancy - monitor labs - Abdominal CT shows Mainly left-sided mid and lower abdominal mesenteric fat stranding with associated subcentimeter lymph nodes which may represent mesenteric panniculitis in the right clinical setting with neoplasm /lymphatic congestion not excluded. Moderate amount of fecal material within the colon. Sigmoid diverticulosis without diverticulitis PPI PPX: none DVT PPX: Eliquis Goals of care discussed with patient for 23 minutes:Full code Case discussed with Dr. Thao Plan discussed with: Patient Date of Service: Nov 28, 2024 Billing Provider: ROBERT THAO MD Common Visit Codes: [id number] INP/OBS CARE(HIGH) VINICIO LARIOS RESIDENT Nov 28, 2024 18:39 ROBERT THAO MD Dec 01, 2024 14:24
[2024-11-29] VITALS (9 sets, daily range): BP systolic 112–125; BP diastolic 46–61; PULSE 64–81; RESP 16–21; TEMP 96.5–98.2; O2SAT 93–97
[2024-11-29 06:28] LABS: Hematocrit 36.0 % (36.0-46.0); Hemoglobin 12.4 g/dL (12.2-16.2); Mean Corpuscular Hemoglobin 28.0 pg (28.0-32.0); Mean Corpuscular Volume 81.3 fL (80.0-100.0); Nucleated Red Blood Cells % 0.0 %
[2024-11-29 06:45] LABS: Albumin 3.6 g/dL (3.2-4.8); Alkaline Phosphatase 56 U/L (46-116); Anion Gap 9 (5-15); BUN/Creatinine Ratio 19.4 (10.0-20.0); Blood Urea Nitrogen 14 mg/dL (9-23); Calcium 8.9 mg/dL (8.7-10.4); Carbon Dioxide 25 mmol/L (20-31); Chloride 104 mmol/L (98-107); Glucose 98 mg/dL (74-106); Potassium 3.6 mmol/L (3.5-5.1); Sodium 138 mmol/L (136-145); Total Protein 5.8 g/dL (5.7-8.2)
[2024-11-29 06:46] LABS: Bilirubin, Total 1.0 mg/dL (0.2-1.0)
[2024-11-29 06:50] LABS: Alanine Aminotransferase 113 U/L (7-40)
--- NOTE | 2024-11-29 08:41 | ECG ---
[facility] Test Date: 2024-11-27 Test Time: 11:34:09 Pat Name: TRAY KHAN Department: ed Room: 0290T A Gender: F [employer] Operator: darrell : 1935 Requested By: SEBASTIÁN BUSH Order Number: [id number] Reading MD: Theo Anderson Measurements Intervals [place] Rate: 65 P: 53 NH: 165 QRS: 59 QRSD: 163 T: -2 QT: 477 QTc: 496 Interpretive Statements Sinus rhythm Right bundle branch block Electronically Signed On 11-30-2024 15:53:25 PDT by Theo Anderson Please click the below link to view image of tracing.
--- NOTE | 2024-11-29 14:10 | DVH ---
EXAM: XY R ANKLE 2 VIEW XRAY CLINICAL INDICATION: history of fracture of rt ankle TECHNIQUE: XY R ANKLE 2 VIEW XRAY Comparison: None FINDINGS/IMPRESSION: There is no evidence of acute fracture or dislocation. Calcaneal spurring. The alignment is anatomical. There is no radiopaque foreign body.
--- NOTE | 2024-11-29 15:13 | DVH ---
INDICATION: Transaminitis TECHNIQUE: Multiple real-time sonographic images of the abdomen were obtained. COMPARISON: None FINDINGS: The liver is heterogeneous in echogenicity. The liver measures 18cm. No intrahepatic bilia ry ductal dilatation is noted. 1 cm right hepatic lobe cyst. Gallbladder surgically removed. The right kidney measures 12cm. No hydronephrosis. The pancreas is not well visualized due to obscuration from bowel gas. The visualized portions of the IVC and aorta are grossly unremarkable. IMPRESSION: Hepatic steatosis /hepatic cirrhosis
--- NOTE | 2024-11-29 16:32 | DVHPNRES ---
Progress Note Date Seen: Nov 29, 2024 Resident Creating Document: VINICIO LARIOS RESIDENT Medical Necessity Reason Pt with a Central, PICC or Fol: No Subjective Review of Systems This is a 89-year-old female with past medical history of fibromyalgia, atrial fibrillation, hypertension, hyperlipidemia, uterine cancer, constipation, diastolic heart failure, arthritis, and recurrent UTIs came to the ED with chief complaint of generalized weakness, and fatigue which has worsened since the last 3 days. She also complains of poor appetite, lack of energy, insomnia, pain in her right ankle from a fall 3 months ago, she uses a electrical scooter for ambulation. She had a LA in May 2024 status post 2 stents, and a mitral valve clip placed, she was diagnosed with AFib 1 year ago, Her last UTI was 4 months ago and she uses nitrofurantoin daily. Patient seen at bedside. Patient appears alert x3, comfortable, states he is feeling better than yesterday, feels a little fatigued and tired, pain in her right ankle, x-ray of the right foot was taken and shows There is no evidence of acute fracture or dislocation, Calcaneal spurring, The alignment is anatomical, There is no radiopaque foreign body. Liver ultrasound was taken and shows Hepatic steatosis /hepatic cirrhosis. Hepatitis panel and coagulation profile was ordered. Objective vital signs Vital Sign Date Time Temp Pulse Resp B/P (MAP) Pulse Ox O2 Delivery O2 Flow Rate FiO2 11/29/24 12:22 96.5 67 18 125/61 (82) 97 96.5 11/29/24 07:50 Room Air* 0 21 Total Intake and Output 11/28/24 11/28/24 11/29/24 15:00 23:00 07:00 Intake Total 50 ml 1840 ml 400 ml Balance 50 ml 1840 ml 400 ml medications Current Medications Medications Dose Ordered Sig/Nikhil Route Start Time Stop Time Status Last Admin Dose Admin Sodium Chloride 1,000 ml @ 60 mls/hr [id number] IV 11/27/24 16:45 11/28/24 07:51 60 MLS/HR Ceftriaxone Sodium 50 ml @ 100 mls/hr DAILY@09 IV 11/28/24 09:00 11/29/24 08:24 100 MLS/HR Amiodarone HCl 200 mg DAILY PO 11/28/24 10:00 11/29/24 08:25 200 MG Apixaban 5 mg BID PO 11/27/24 22:00 11/29/24 08:25 5 MG Metoprolol Tartrate 50 mg BID PO 11/27/24 22:00 11/28/24 20:53 50 MG Atorvastatin Calcium 40 mg HS PO 11/27/24 22:00 11/28/24 20:54 40 MG Examination General: Patient alert and oriented in person, place and time. Patient following commands. HEENT: Normocephalic, atraumatic, moist mucous membranes Respiratory/pulmonary: Clear lungs bilaterally, vesicular murmurs present in almost all lung hutchinson, no associated crackles or wheezes. Cardiovascular: Normal heart sounds S1 and S2 with no associated murmurs Abdomen: Abdomen nondistended, there is no pain to palpation in any of the abdominal quadrants, no palpable masses. Extremities: There is no peripheral edema present at the lower extremities. Peripheral Pulses: 3+ Radial (R). 3+ Radial (L). 3+ Dorsalis pedis (R). 3+ Dorsalis pedis(L) Skin: No rashes or pruritus, there is no sacral edema present at this time. Neurological: Intact cranial nerves with no focal neurologic deficits laboratory and microbiology Laboratory Tests 11/29/24 04:51 Test 11/29/24 04:51 Range/Units Serum Glucose 98 74-106 mg/dL Microbiology Date/Time Source Procedure Growth Status 11/27/24 16:45 Voided Urine Urine Culture - Preliminary Resulted 11/27/24 15:38 Blood Blood Culture - Preliminary NO GROWTH AFTER 48 HOURS OF INCUBATION. Resulted Labs and/or images reviewed: Labs reviewed by me, Image(s) reviewed by me Problem List/Assessment/Plan Problem List/Assessment/Plan #Sepsis likely secondary to colitis - IV ceftriaxone - urinalysis show no signs of UTI - Chest xray shows No acute intrathoracic abnormality. # Generalized weakness due to functional decline - IV fluids and nutritional support # fibromyalgia - Continue home meds #hyperlipidemia - continue home meds # hypertension - continue home meds #Paroxysmal Afib with secondary hypercoagulable state - Thomas Vasc score is 4 - HAS- BLED score is 2 - Amodarone and DOAC - Eliquis # Hyperbilirubinemia with transaminitis likely secondary to malignancy/ Liver cirrhosis - monitor labs - Abdominal CT shows Mainly left-sided mid and lower abdominal mesenteric fat stranding with associated subcentimeter lymph nodes which may represent mesenteric panniculitis in the right clinical setting with neoplasm /lymphatic congestion not excluded. Moderate amount of fecal material within the colon. Sigmoid diverticulosis without diverticulitis - Liver US shows: Hepatic steatosis /hepatic cirrhosis - Ordered hepatitis panel and coagulation profile PPI PPX: none DVT PPX: Eliquis Goals of care discussed with patient for 23 minutes:Full code Case discussed with Dr. Thao Plan discussed with: Patient Date of Service: Nov 29, 2024 Billing Provider: ROBERT THAO MD Common Visit Codes: [id number] INP/OBS CARE(HIGH) VINICIO LARIOS RESIDENT Nov 29, 2024 16:32 ROBERT THAO MD Dec 01, 2024 14:30
[2024-11-29 17:24] LABS: INR 1.34 (0.9-1.15); Partial Thromboplastin Time 33.1 SEC (24.5-34.5); Prothrombin Time 13.8 sec (9.3-11.8)
[2024-11-30] VITALS (7 sets, daily range): BP systolic 110–135; BP diastolic 56–66; PULSE 60–63; RESP 16–19; TEMP 97.8–98.4; O2SAT 94–96
[2024-11-30 05:44] LABS: Chloride 105 mmol/L (98-107); Potassium 3.7 mmol/L (3.5-5.1); Sodium 139 mmol/L (136-145)
[2024-11-30 05:45] LABS: Anion Gap 9 (5-15); Carbon Dioxide 25 mmol/L (20-31)
[2024-11-30 05:46] LABS: Calcium 8.6 mg/dL (8.7-10.4)
[2024-11-30 05:50] LABS: BUN/Creatinine Ratio 20.3 (10.0-20.0); Blood Urea Nitrogen 15 mg/dL (9-23); Glucose 96 mg/dL (74-106)
[2024-11-30 11:17] LABS: Hepatitis A Total Antibody Positive (Negative); Hepatitis B Surface Antigen Negative (Negative); Hepatitis C Antibody Negative (Negative)
--- NOTE | 2024-11-30 17:15 | DVHPNRES ---
Progress Note Date Seen: Nov 30, 2024 Resident Creating Document: VINICIO LARIOS RESIDENT Medical Necessity Reason Pt with a Central, PICC or Fol: No Subjective Review of Systems This is a 89-year-old female with past medical history of fibromyalgia, atrial fibrillation, hypertension, hyperlipidemia, uterine cancer, constipation, diastolic heart failure, arthritis, and recurrent UTIs came to the ED with chief complaint of generalized weakness, and fatigue which has worsened since the last 3 days. She also complains of poor appetite, lack of energy, insomnia, pain in her right ankle from a fall 3 months ago, she uses a electrical scooter for ambulation. She had a UT in May 2024 status post 2 stents, and a mitral valve clip placed, she was diagnosed with AFib 1 year ago, Her last UTI was 4 months ago and she uses nitrofurantoin daily. x-ray of the right foot was taken and shows There is no evidence of acute fracture or dislocation, Calcaneal spurring, The alignment is anatomical, There is no radiopaque foreign body. Liver ultrasound was taken and shows Hepatic steatosis /hepatic cirrhosis. Hepatitis panel and coagulation profile was ordered. Patient seen at bedside. Patient appears comfortable, alert x3, says she is feeling better than yesterday, denies any nausea, vomiting, headaches, abdominal pain, diarrhea. Patient is eating and tolerating well and had a bowel movement. Orthopedics was consulted and gave patient orthopedic boot and recommended follow-up outpatient. PT eval was placed. Objective vital signs Vital Sign Date Time Temp Pulse Resp B/P (MAP) Pulse Ox O2 Delivery O2 Flow Rate FiO2 11/30/24 16:50 98.0 61 18 122/59 (80) 96 98.0 11/30/24 07:58 Room Air* 0 21 Total Intake and Output 11/29/24 11/29/24 11/30/24 15:00 23:00 07:00 Intake Total 490 ml 1360 ml 600 ml Balance 490 ml 1360 ml 600 ml medications Current Medications Medications Dose Ordered Sig/Nikhil Route Start Time Stop Time Status Last Admin Dose Admin Sodium Chloride 1,000 ml @ 60 mls/hr [id number] IV 11/27/24 16:45 11/30/24 11:01 60 MLS/HR Ceftriaxone Sodium 50 ml @ 100 mls/hr DAILY@09 IV 11/28/24 09:00 11/30/24 09:51 100 MLS/HR Amiodarone HCl 200 mg DAILY PO 11/28/24 10:00 11/30/24 09:51 200 MG Apixaban 5 mg BID PO 11/27/24 22:00 11/30/24 09:51 5 MG Metoprolol Tartrate 50 mg BID PO 11/27/24 22:00 11/29/24 22:02 50 MG Atorvastatin Calcium 40 mg HS PO 11/27/24 22:00 11/29/24 22:01 40 MG Examination General: Patient alert and oriented in person, place and time. Patient following commands. HEENT: Normocephalic, atraumatic, moist mucous membranes Respiratory/pulmonary: Clear lungs bilaterally, vesicular murmurs present in almost all lung hutchinson, no associated crackles or wheezes. Cardiovascular: Normal heart sounds S1 and S2 with no associated murmurs Abdomen: Abdomen nondistended, there is no pain to palpation in any of the abdominal quadrants, no palpable masses. Extremities: There is no peripheral edema present at the lower extremities. Peripheral Pulses: 3+ Radial (R). 3+ Radial (L). 3+ Dorsalis pedis (R). 3+ Dorsalis pedis(L) Skin: No rashes or pruritus, there is no sacral edema present at this time. Neurological: Intact cranial nerves with no focal neurologic deficits laboratory and microbiology Laboratory Tests 11/30/24 03:52 11/29/24 04:51 Test 11/30/24 03:52 Range/Units Serum Glucose 96 74-106 mg/dL Microbiology Date/Time Source Procedure Growth Status 11/27/24 16:45 Voided Urine Urine Culture - Final Complete 11/27/24 15:38 Blood Blood Culture - Preliminary NO GROWTH AFTER 72 HOURS OF INCUBATION. Resulted Problem List/Assessment/Plan Problem List/Assessment/Plan #Sepsis likely secondary to colitis - IV ceftriaxone - urinalysis show no signs of UTI - Chest xray shows No acute intrathoracic abnormality. # Generalized weakness due to functional decline - IV fluids and nutritional support # fibromyalgia - Continue home meds #hyperlipidemia - continue home meds # hypertension - continue home meds #Paroxysmal Afib with secondary hypercoagulable state - Thomas Vasc score is 4 - HAS- BLED score is 2 - Amodarone and DOAC - Eliquis # Hyperbilirubinemia with transaminitis likely secondary to malignancy/ Liver cirrhosis - monitor labs - Abdominal CT shows Mainly left-sided mid and lower abdominal mesenteric fat stranding with associated subcentimeter lymph nodes which may represent mesenteric panniculitis in the right clinical setting with neoplasm /lymphatic congestion not excluded. Moderate amount of fecal material within the colon. Sigmoid diverticulosis without diverticulitis - Liver US shows: Hepatic steatosis /hepatic cirrhosis - Ordered hepatitis panel and coagulation profile PPI PPX: none DVT PPX: Eliquis Goals of care discussed with patient for 23 minutes:Full code Case discussed with Dr. Thao Plan discussed with: Patient My Orders My Orders Orders - VINICIO LARIOS Procedure Category Date Status Time Pt Request For Service PT 11/30/24 Logged 16:36 Date of Service: Nov 30, 2024 Billing Provider: ROBERT THAO MD Common Visit Codes: [id number] INP/OBS CARE(HIGH) VINICIO LARIOS Nov 30, 2024 17:15 ROBERT THAO MD Dec 06, 2024 20:06
--- NOTE | 2024-11-30 20:25 | DVHINCON2 ---
Consult Note Consult Consult Note Reason for Consult: Orthopedic evaluation of chronic right ankle pain during inpatient stay for general weakness managed by hospitalist; patient is currently under the care of an outpatient orthopedic surgeon but may miss follow-up due to hospitalization. --- History of Present Illness: Ms. Suzan Galeas is an inpatient for non-orthopedic medical issues and was referred to orthopedic service for documentation and evaluation of her right ankle pain, which has been ongoing for more than 3 months. She is actively under care with an outpatient orthopedic surgeon and is concerned that her current hospital admission may interfere with her follow-up appointment. She requested an orthopedic evaluation during her inpatient stay to bridge care. She denies any recent trauma. Reports intermittent pain localized to the right ankle and midfoot. No current swelling or significant functional decline. She is miminal TTWB at this time with walker per pt. --- Review of Systems: Musculoskeletal: Right ankle and midfoot pain. Denies other joint pain or injuries. Neurologic: No numbness or tingling. General: No fever, chills, or malaise reported. --- Physical Exam: Inspection: No swelling, no ecchymosis Palpation: Minimal tenderness to Lisfranc joint region Mild tenderness over right ankle joint Range of Motion: Full but mildly painful with extremes Neurovascular: Grossly intact distally (sensation and pulses preserved) Skin: Intact, no signs of open wounds or skin compromise --- Imaging: CT scan from [facility] (previous): Suggestive of healing right ankle fractures vs. post-traumatic osteoarthritis and possible Lisfranc injury foot X-ray (inpatient, today): No acute fracture. Findings consistent with chronic bony changes of right ankle and midfoot, possibly post-traumatic or arthritic in nature --- Assessment: 1. Chronic right ankle and midfoot pain 2. 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 Remote history of ankle fracture healed 4. No acute orthopedic pathology on current exam --- Plan: CASE DISCUSSED WITH IMAGES WITH DR. BECERRA WHO RECS NON OP AT THIS TIME Placed in a CAM boot today for comfort and joint stabilization Weight-bearing as tolerated (WBAT) Reinforced importance of continued orthopedic follow-up Patient has a scheduled appointment with her orthopedic surgeon on December 12 at 11:00 AM No additional acute orthopedic intervention needed during this admission Orthopedic team available for reassessment if symptoms worsen --- All questions were answered. Patient agrees with the current plan and will continue outpatient follow-up. Plan discussed with: Patient, Other (BEDSIDE NURSE) Visit Coding Surgery Date of Service if different f: Nov 30, 2024 Billing Provider: NAY REED Surgery Visit Codes: [id number] - INP CONSULT <55 MIN NAY REED Nov 30, 2024 20:25
[2024-12-01] VITALS (7 sets, daily range): BP systolic 112–138; BP diastolic 49–68; PULSE 54–59; RESP 16–18; TEMP 97.4–98.3; O2SAT 95–96
[2024-12-01 07:08] LABS: Hematocrit 35.6 % (36.0-46.0); Hemoglobin 12.1 g/dL (12.2-16.2); Mean Corpuscular Hemoglobin 27.6 pg (28.0-32.0); Mean Corpuscular Volume 81.0 fL (80.0-100.0); Nucleated Red Blood Cells % 0.0 %
[2024-12-01 07:24] LABS: Albumin 3.5 g/dL (3.2-4.8); Alkaline Phosphatase 54 U/L (46-116); Anion Gap 8 (5-15); BUN/Creatinine Ratio 21.5 (10.0-20.0); Bilirubin, Total 0.6 mg/dL (0.2-1.0); Blood Urea Nitrogen 14 mg/dL (9-23); Calcium 8.7 mg/dL (8.7-10.4); Carbon Dioxide 27 mmol/L (20-31); Chloride 106 mmol/L (98-107); Glucose 95 mg/dL (74-106); Potassium 3.7 mmol/L (3.5-5.1); Sodium 141 mmol/L (136-145)
[2024-12-01 07:25] LABS: Alanine Aminotransferase 82 U/L (7-40); Total Protein 5.4 g/dL (5.7-8.2)
--- NOTE | 2024-12-01 17:21 | DVHPNRES ---
Progress Note Date Seen: Dec 01, 2024 Resident Creating Document: VINICIO LARIOS RESIDENT Medical Necessity Reason Pt with a Central, PICC or Fol: No Subjective Review of Systems This is a 89-year-old female with past medical history of fibromyalgia, atrial fibrillation, hypertension, hyperlipidemia, uterine cancer, constipation, diastolic heart failure, arthritis, and recurrent UTIs came to the ED with chief complaint of generalized weakness, and fatigue which has worsened since the last 3 days. She also complains of poor appetite, lack of energy, insomnia, pain in her right ankle from a fall 3 months ago, she uses a electrical scooter for ambulation. She had a MD in May 2024 status post 2 stents, and a mitral valve clip placed, she was diagnosed with AFib 1 year ago, Her last UTI was 4 months ago and she uses nitrofurantoin daily. x-ray of the right foot was taken and shows There is no evidence of acute fracture or dislocation, Calcaneal spurring, The alignment is anatomical, There is no radiopaque foreign body. Liver ultrasound was taken and shows Hepatic steatosis /hepatic cirrhosis. Hepatitis panel and coagulation profile was ordered. Patient is seen at bedside. Patient appears comfortable, alert x3, patient has no new complaints. Patient is using cam boot and is able to weight bear. Denies any nausea, vomiting, diarrhea, headaches, dizziness. technical services coordinator consulted and waiting for placement with home PT. Objective vital signs Vital Sign Date Time Temp Pulse Resp B/P (MAP) Pulse Ox O2 Delivery O2 Flow Rate FiO2 12/01/24 16:43 97.4 59 17 115/59 (77) 96 97.4 12/01/24 08:00 Room Air* 0 21 Total Intake and Output 11/30/24 11/30/24 12/01/24 15:00 23:00 07:00 Intake Total 50 ml 1250 ml 300 ml Balance 50 ml 1250 ml 300 ml medications Current Medications Medications Dose Ordered Sig/Nikhil Route Start Time Stop Time Status Last Admin Dose Admin Sodium Chloride 1,000 ml @ 60 mls/hr [id number] IV 11/27/24 16:45 12/01/24 08:15 60 MLS/HR Amiodarone HCl 200 mg DAILY PO 11/28/24 10:00 12/01/24 09:48 200 MG Apixaban 5 mg BID PO 11/27/24 22:00 12/01/24 09:48 5 MG Metoprolol Tartrate 50 mg BID PO 11/27/24 22:00 12/01/24 09:55 50 MG Atorvastatin Calcium 40 mg HS PO 11/27/24 22:00 11/30/24 22:00 40 MG Cephalexin 500 mg Q6HR PO 12/01/24 18:00 Examination General: Patient alert and oriented in person, place and time. Patient following commands. HEENT: Normocephalic, atraumatic, moist mucous membranes Respiratory/pulmonary: Clear lungs bilaterally, vesicular murmurs present in almost all lung hutchinson, no associated crackles or wheezes. Cardiovascular: Normal heart sounds S1 and S2 with no associated murmurs Abdomen: Abdomen nondistended, there is no pain to palpation in any of the abdominal quadrants, no palpable masses. Extremities: There is no peripheral edema present at the lower extremities. Peripheral Pulses: 3+ Radial (R). 3+ Radial (L). 3+ Dorsalis pedis (R). 3+ Dorsalis pedis(L) Skin: No rashes or pruritus, there is no sacral edema present at this time. Neurological: Intact cranial nerves with no focal neurologic deficits laboratory and microbiology Laboratory Tests 12/01/24 05:11 Test 12/01/24 05:11 Range/Units Serum Glucose 95 74-106 mg/dL Microbiology Date/Time Source Procedure Growth Status 11/27/24 16:45 Voided Urine Urine Culture - Final Complete 11/27/24 15:38 Blood Blood Culture - Preliminary NO GROWTH AFTER 72 HOURS OF INCUBATION. Resulted Problem List/Assessment/Plan Problem List/Assessment/Plan #Sepsis likely secondary to colitis - IV ceftriaxone - urinalysis show no signs of UTI - Chest xray shows No acute intrathoracic abnormality. # Generalized weakness due to functional decline - IV fluids and nutritional support # fibromyalgia - Continue home meds #hyperlipidemia - continue home meds # hypertension - continue home meds #Paroxysmal Afib with secondary hypercoagulable state - Thomas Vasc score is 4 - HAS- BLED score is 2 - Amodarone and DOAC - Eliquis # Hyperbilirubinemia with transaminitis likely secondary to malignancy/ Liver cirrhosis - monitor labs - Abdominal CT shows Mainly left-sided mid and lower abdominal mesenteric fat stranding with associated subcentimeter lymph nodes which may represent mesenteric panniculitis in the right clinical setting with neoplasm /lymphatic congestion not excluded. Moderate amount of fecal material within the colon. Sigmoid diverticulosis without diverticulitis - Liver US shows: Hepatic steatosis /hepatic cirrhosis - hepatitis panel shows hep A positive PPI PPX: none DVT PPX: Eliquis Goals of care discussed with patient for 23 minutes:Full code Case discussed with Dr. Thao Plan discussed with: Patient Date of Service: Dec 01, 2024 Billing Provider: ROBERT THAO MD Common Visit Codes: [id number] INP/OBS CARE(MOD) VINICIO LARIOS RESIDENT Dec 01, 2024 17:21 ROBERT THAO MD Dec 06, 2024 20:11
[2024-12-01] MEDS: CEPHALEXIN 250 MG CAP PO SCH (17:47)
[2024-12-02] VITALS (9 sets, daily range): BP systolic 117–148; BP diastolic 60–74; PULSE 55–61; RESP 16–20; TEMP 97.7–98.2; O2SAT 94–98
[2024-12-02 08:03] LABS: Hematocrit 39.4 % (36.0-46.0); Hemoglobin 13.2 g/dL (12.2-16.2); Mean Corpuscular Hemoglobin 27.7 pg (28.0-32.0); Mean Corpuscular Volume 83.0 fL (80.0-100.0); Nucleated Red Blood Cells % 0.1 %
[2024-12-02 08:15] LABS: Albumin 3.9 g/dL (3.2-4.8); Alkaline Phosphatase 63 U/L (46-116); Anion Gap 7 (5-15); BUN/Creatinine Ratio 18.4 (10.0-20.0); Blood Urea Nitrogen 14 mg/dL (9-23); Calcium 9.1 mg/dL (8.7-10.4); Carbon Dioxide 27 mmol/L (20-31); Chloride 106 mmol/L (98-107); Glucose 95 mg/dL (74-106); Potassium 3.7 mmol/L (3.5-5.1); Sodium 140 mmol/L (136-145); Total Protein 6.2 g/dL (5.7-8.2)
[2024-12-02 08:16] LABS: Bilirubin, Total 0.6 mg/dL (0.2-1.0)
[2024-12-02 08:20] LABS: Alanine Aminotransferase 92 U/L (7-40)
--- NOTE | 2024-12-02 11:30 | DVHDSRES ---
Discharge Summary Date of Admission Resident Creating Document: VINICIO LARIOS RESIDENT Nov 27, 2024 at 16:39 Date of Discharge: Dec 02, 2024 Admitting Diagnosis # Generalized weakness due to functional decline Labs/Diagnostic Data: Laboratory Results Test 12/02/24 07:21 11/29/24 16:58 11/29/24 04:51 11/27/24 16:45 White Blood Count 7.1 10^3/uL (4.4-10.8) Red Blood Count 4.75 10^6/uL (4.0-5.20) Hemoglobin 13.2 g/dL (12.2-16.2) Hematocrit 39.4 % (36.0-46.0) Mean Corpuscular Volume 83.0 fL (80.0-100.0) Mean Corpuscular Hemoglobin 27.7 pg (28.0-32.0) Mean Corpuscular Hemoglobin Concent 33.4 g/dL (32.0-36.0) Red Cell Distribution Width 14.5 % (11.8-14.3) Platelet Count 249 10^3/uL (140-450) Mean Platelet Volume 8.9 fL (6.9-10.8) Neutrophils (%) (Auto) 77.8 % (37.0-80.0) Lymphocytes (%) (Auto) 10.4 % (10.0-50.0) Monocytes (%) (Auto) 8.3 % (0.0-12.0) Eosinophils (%) (Auto) 3.1 % (0.0-7.0) Basophils (%) (Auto) 0.4 % (0.0-2.0) Neutrophils # (Auto) 5.5 10 ^3/uL (1.6-8.6) Lymphocytes # (Auto) 0.7 10 ^3/uL (0.4-5.4) Monocytes # (Auto) 0.6 10 ^3/uL (0-1.3) Eosinophils # (Auto) 0.2 10 ^3/uL (0-0.8) Basophils # (Auto) 0 10 ^3/uL (0-0.2) Nucleated Red Blood Cells 0.1 % Sodium Level 140 mmol/L (136-145) Potassium Level 3.7 mmol/L (3.5-5.1) Chloride Level 106 mmol/L (98-107) Carbon Dioxide Level 27 mmol/L (20-31) Anion Gap 7 (5-15) Blood Urea Nitrogen 14 mg/dL (9-23) Creatinine 0.76 mg/dL (0.550-1.02) Glomerular Filtration Rate Calc 75 mL/min (>90) BUN/Creatinine Ratio 18.4 (10.0-20.0) Serum Glucose 95 mg/dL (74-106) Calcium Level 9.1 mg/dL (8.7-10.4) Total Bilirubin 0.6 mg/dL (0.2-1.0) Aspartate Amino Transferase (AST) 69 U/L (13-40) Alanine Aminotransferase (ALT) 92 U/L (7-40) Alkaline Phosphatase 63 U/L (46-116) Total Protein 6.2 g/dL (5.7-8.2) Albumin 3.9 g/dL (3.2-4.8) Prothrombin Time 13.8 sec (9.3-11.8) Prothrombin Time INR 1.34 (0.9-1.15) Activated Partial Thromboplast Time 33.1 SEC (24.5-34.5) Hepatitis A Antibody Total Positive (Negative) Hepatitis B Surface Antigen Negative (Negative) Hepatitis B Surface Antibody Negative (Negative) Hepatitis B Core Total Antibody Negative (Negative) Hepatitis C Antibody Negative (Negative) Urine Color Yellow (Yellow) Urine Clarity Turbid (Clear) Urine pH 5.5 (5.0-9.0) Urine Specific [place] 1.024 (1.001-1.035) Urine Protein 1+ (Negative) Urine Ketones Negative (Negative) Urine Blood Negative /uL (Negative) Urine Nitrite Negative (Negative) Urine Bilirubin Negative (Negative) Urine Urobilinogen 3 mg/dL (Negative) Urine Leukocyte Esterase Negative /uL (Negative) Urine RBC 2 /hpf (0 - 4) Urine Microscopic WBC 2 /HPF (0-5) Urine Squamous Epithelial Cells Few /hpf (<5) Urine Bacteria Few /hpf (None Seen) Urine Mucus Few (None Seen) Urine Glucose Normal mg/dL (Normal) Test 11/27/24 15:20 11/27/24 13:38 11/27/24 11:31 Lactic Acid Level 1.0 mmol/L (0.4-2.0) Troponin I High Sensitivity 3 ng/L (</=34) POC Glucose 137 mg/dl (70-106) Other Laboratory Tests 12/02/24 07:21 Brief Hx & Hospital Course: This is a 89-year-old female with past medical history of fibromyalgia, atrial fibrillation, hypertension, hyperlipidemia, uterine cancer, constipation, diastolic heart failure, arthritis, and recurrent UTIs came to the ED with chief complaint of generalized weakness, and fatigue which has worsened since the last 3 days. She also complains of poor appetite, lack of energy, insomnia, pain in her right ankle from a fall 3 months ago, she uses a electrical scooter for ambulation. She had a MT in May 2024 status post 2 stents, and a mitral valve clip placed, she was diagnosed with AFib 1 year ago, Her last UTI was 4 months ago and she uses nitrofurantoin daily. x-ray of the right foot was taken and shows There is no evidence of acute fracture or dislocation, Calcaneal spurring, The alignment is anatomical, There is no radiopaque foreign body. Liver ultrasound was taken and shows Hepatic steatosis /hepatic cirrhosis. Brief hospital course: Patient came to the ED with chief complaint of generalized weakness possibly due to functional decline and weight loss was given IV fluids and nutritional support. patient has a history of fibromyalgia, which she uses her home medication. Patient has hyperlipidemia and hypertension and uses home medication. Patient had sepsis likely secondary to colitis IV ceftriaxone was given, urinalysis shows no signs of UTI, chest x-ray shows no acute intrathoracic abnormality. Abdominal CT showed Mainly left-sided mid and lower abdominal mesenteric fat stranding with associated subcentimeter lymph nodes which may represent mesenteric panniculitis in the right clinical setting with neoplasm /lymphatic congestion not excluded. Moderate amount of fecal material within the colon. Sigmoid diverticulosis without diverticulitis. Hyperbilirubinemia with transaminitis was likely due to liver cirrhosis. Liver US shows: Hepatic steatosis /hepatic cirrhosis. Hepatitis panel showed hepatitis A positive. Patient has paroxysmal AFib with secondary hypercoagulable state with Thomas Vasc score of 4 and has bled score of 2 she takes amiodarone and DOAC, Eliquis. Patient was mostly concerned of her weight loss and generalized weakness. She had a right ankle fracture 3 months ago, ortho was consulted and recommended usage of Cam boot, not stated she is able to weight bear. Ankle x-ray showed There is no evidence of acute fracture or dislocation. office services associate was consulted for home PT. Patient is stable for discharge, and communicated understanding of her discharge plan, and agreed to follow-up with discharge Clinic in 1-2 weeks. General: Patient alert and oriented in person, place and time. Patient following commands. HEENT: Normocephalic, atraumatic, moist mucous membranes Respiratory/pulmonary: Clear lungs bilaterally, vesicular murmurs present in almost all lung hutchinson, no associated crackles or wheezes. Cardiovascular: Normal heart sounds S1 and S2 with no associated murmurs Abdomen: Abdomen nondistended, there is no pain to palpation in any of the abdominal quadrants, no palpable masses. Extremities: There is no peripheral edema present at the lower extremities. Peripheral Pulses: 3+ Radial (R). 3+ Radial (L). 3+ Dorsalis pedis (R). 3+ Dorsalis pedis(L) Skin: No rashes or pruritus, there is no sacral edema present at this time. Neurological: Intact cranial nerves with no focal neurologic deficits Consults/Reason for consult ORDERING PHYSICIAN: ANIKA ROSSI PROCEDURE(s): RANK2 - R ANKLE 2 VIEW XRAY REASON: history of fracture of rt ankle ORDER NUMBER(s): [id number], ACCESSION NUMBER(s): [id number] EXAM: XY R ANKLE 2 VIEW XRAY CLINICAL INDICATION: history of fracture of rt ankle TECHNIQUE: XY R ANKLE 2 VIEW XRAY Comparison: None FINDINGS/IMPRESSION: There is no evidence of acute fracture or dislocation. Calcaneal spurring. The alignment is anatomical. There is no radiopaque foreign body. DICTATED BY: MARK KUMAR MD DICTATED DATE/TIME: 11/29/241407 SIGNED BY: MARK KUMAR MD SIGNED DATE/TIME: 11/29/241407 ORDERING PHYSICIAN: FARDOUS,ANIKA RESIDENT PROCEDURE(s): ABDL - ABDOMEN LIMITED REASON: Transaminitis ORDER NUMBER(s): [id number], ACCESSION NUMBER(s): [id number] INDICATION: Transaminitis TECHNIQUE: Multiple real-time sonographic images of the abdomen were obtained. COMPARISON: None FINDINGS: The liver is heterogeneous in echogenicity. The liver measures 18cm. No intrahepatic biliary ductal dilatation is noted. 1 cm right hepatic lobe cyst. Gallbladder surgically removed. The right kidney measures 12cm. No hydronephrosis. The pancreas is not well visualized due to obscuration from bowel gas. The visualized portions of the IVC and aorta are grossly unremarkable. IMPRESSION: Hepatic steatosis /hepatic cirrhosis ORDERING PHYSICIAN: SEBASTIÁN BUSH MD PROCEDURE(s): ABPL - CT AB PEL WO CON-NO ORAL OR IV REASON: colitis ORDER NUMBER(s): [id number], ACCESSION NUMBER(s): [id number] Exam: CT CT AB PEL WO CON-NO ORAL OR IV History: colitis Comparison Study: None TECHNIQUE: Multidetector CT of the abdomen and pelvis without IV contrast. Axial, coronal and sagittal multiplanar reformats were obtained from the axial data set by the technologist. Radiation Dose Information: CT Dose: CTDI volume is 9.68 mGy. Dose-length product is mGy*cm FINDINGS: Bibasilar atelectasis. Partially visualized heart is normal in size. Subcentimeter hypodense hepatic lesions are noted that are too small to characterize. Mild hepatomegaly. Mild splenomegaly. Pancreas and adrenal glands are unremarkable. Kidneys, ureters and urinary bladder unremarkable. Status post hysterectomy. Stomach is unremarkable. Small bowel loops unremarkable. Appendix is not definitely visualized. Moderate amount of fecal material within the colon. Sigmoid diverticulosis without diverticulitis. No evidence of intraperitoneal free air or free fluid. There is significant fat stranding over the mainly left mid and lower abdominal mesenteric fat with associated subcentimeter lymph nodes. Moderate to heavy atherosclerotic calcification of the aorta and bilateral iliacs. Tiny fat containing umbilical hernia. The soft tissues are unremarkable. No destructive osseous lesions are noted. Chronic anterior wedge deformity of T12 with T11-T12 anterior bridging osteophyte. 5 mm retropulsion of the posterior superior T12 vertebral body into the spinal canal causing mild spinal canal stenosis. Sclerotic focus over the right iliac bone represent a bone island with a blastic lesion not excluded. Diffuse demineralization. IMPRESSION: Mainly left-sided mid and lower abdominal mesenteric fat stranding with associated subcentimeter lymph nodes which may represent mesenteric panniculitis in the right clinical setting with neoplasm /lymphatic congestion not excluded. Moderate amount of fecal material within the colon. Sigmoid diverticulosis without diverticulitis. Additional findings as above. XY CHEST PORTABLE, HISTORY: sob COMPARISON: XY CHEST PORTABLE on DOS: 08/24/24, XY CHEST XRAY 1 VIEW on DOS: 05/15/23 XY CHEST PORTABLE on DOS: 08/24/24, XY CHEST XRAY 1 VIEW on DOS: 05/15/23 TECHNICAL DATA: 1 view of the chest was obtained. FINDINGS: Lines and tubes: None Cardiomediastinal silhouette: normal Pulmonary vasculature: normal Lung expansion: normal Lung airspace: normal Lung interstitium: normal Pleura: normal Pneumothorax: no Bones: Unremarkable Other: no IMPRESSION: No acute intrathoracic abnormality. Condition at Discharge: Stable Final Diagnosis/Problems List # Sepsis ruled out # Generalized weakness due to functional decline # fibromyalgia # hyperlipidemia # hypertension # Paroxysmal Afib with secondary hypercoagulable state # Hyperbilirubinemia with transaminitis likely Liver cirrhosis # Malignancy ruled out Discharge Disposition: Home with Health Services Discharge Instruct/Medications Diet: Consistent carbohydrate, Cardiac 2g Na,low cholest Activity: No Restrictions, As Tolerated Follow Up/Referral: Follow up with Discharge clinic in 1-2 weeks Medications: As per EMR Scheduled Amiodarone Hcl (Amiodarone Hcl), 200 MG PO DAILY Apixaban Base (Eliquis), 5 MG PO BID Apixaban Base (Eliquis), 2.5 MG PO BID Atorvastatin Calcium (Lipitor), 40 MG PO DAILY, (Reported) Hydralazine Hcl (Hydralazine Hcl), 10 MG PO BIDPRN, (Reported) Lisinopril (Lisinopril), 5 MG PO DAILY, (Reported) Metoprolol Tartrate (Metoprolol Tartrate), 50 MG PO BID, (Reported) Mirtazapine (Remeron), 0.5 TAB PO QPM Nitrofurantoin (Nitrofurantoin), 100 MG PO DAILY, (Reported) Potassium Chloride (Klor-Con 8), 8 MEQ PO DAILY, (Reported) Rosuvastatin Calcium (Crestor), 1 TAB PO HS, (Reported) Triamterene & Hydrochlorothiaz (Maxzide), 1 TAB PO DAILY, (Reported) Discharge Statement: "Patient was advised to return to the ER or call 911 if any headaches, dizziness, shortness of breath, chest pain, abdominal pain, bleeding, fevers, or worsening of medical condition. Patient was counseled about treatment plan, medications, possible side effects, patientverbalized understanding. All questions were answered to the best of my ability. This discharge took greater then 30 minutes in planning, reviewing documentation, counseling the patient, and discussing with other team members." ASSESSMENT ASSESSMENT Assessment #Generalized Weakness Date of Service: Dec 02, 2024 Billing Provider: ROBERT THAO MD Common Visit Codes: [id number] INP/OBS CARE(MOD) VINICIO LARIOS Dec 02, 2024 11:30 ROBERT THAO MD Dec 08, 2024 13:20
[2024-12-02] MEDS ORDERED: MIRT-94 PO (11:36)
[2024-12-02] MEDS ORDERED: APIX2.5T PO (11:36)
[2024-12-03] VITALS (8 sets, daily range): BP systolic 70–145; BP diastolic 60–76; PULSE 54–70; RESP 16–18; TEMP 97.5–98.6; O2SAT 95–96
[2024-12-03] MEDS: CEPHALEXIN 250 MG CAP PO SCH ×2 (09:47→17:07)
--- NOTE | 2024-12-03 17:22 | DVHPNRES ---
Progress Note Date Seen: Dec 03, 2024 Resident Creating Document: VINICIO LARIOS RESIDENT Medical Necessity Reason Pt with a Central, PICC or Fol: No Subjective Review of Systems This is a 89-year-old female with past medical history of fibromyalgia, atrial fibrillation, hypertension, hyperlipidemia, uterine cancer, constipation, diastolic heart failure, arthritis, and recurrent UTIs came to the ED with chief complaint of generalized weakness, and fatigue which has worsened since the last 3 days. She also complains of poor appetite, lack of energy, insomnia, pain in her right ankle from a fall 3 months ago, she uses a electrical scooter for ambulation. She had a [place] in May 2024 status post 2 stents, and a mitral valve clip placed, she was diagnosed with AFib 1 year ago, Her last UTI was 4 months ago and she uses nitrofurantoin daily. x-ray of the right foot was taken and shows There is no evidence of acute fracture or dislocation, Calcaneal spurring, The alignment is anatomical, There is no radiopaque foreign body. Liver ultrasound was taken and shows Hepatic steatosis /hepatic cirrhosis. Hepatitis panel and coagulation profile was ordered. Patient is seen at bedside. Patient appears comfortable, alert x3, patient has no new complaints. Patient is using cam boot and is able to weight bear. Denies any nausea, vomiting, diarrhea, headaches, dizziness. student services vice president consulted and waiting for placement in [place] for PT. Objective vital signs Vital Sign Date Time Temp Pulse Resp B/P (MAP) Pulse Ox O2 Delivery O2 Flow Rate FiO2 12/03/24 13:00 98.1 59 18 145/67 (93) 95 98.1 12/03/24 08:00 Room Air* 0 21 Total Intake and Output 12/02/24 12/02/24 12/03/24 15:00 23:00 07:00 Intake Total 480 ml 800 ml Balance 480 ml 800 ml medications Current Medications Medications Dose Ordered Sig/Nikhil Route Start Time Stop Time Status Last Admin Dose Admin Sodium Chloride 1,000 ml @ 60 mls/hr [id number] IV 11/27/24 16:45 12/01/24 08:15 60 MLS/HR Amiodarone HCl 200 mg DAILY PO 11/28/24 10:00 12/03/24 09:47 200 MG Apixaban 5 mg BID PO 11/27/24 22:00 12/03/24 09:47 5 MG Metoprolol Tartrate 50 mg BID PO 11/27/24 22:00 12/03/24 09:48 50 MG Atorvastatin Calcium 40 mg HS PO 11/27/24 22:00 12/02/24 21:37 40 MG Cephalexin 500 mg Q8HR PO 12/03/24 16:00 12/03/24 17:07 500 MG Examination General: Patient alert and oriented in person, place and time. Patient following commands. HEENT: Normocephalic, atraumatic, moist mucous membranes Respiratory/pulmonary: Clear lungs bilaterally, vesicular murmurs present in almost all lung hutchinson, no associated crackles or wheezes. Cardiovascular: Normal heart sounds S1 and S2 with no associated murmurs Abdomen: Abdomen nondistended, there is no pain to palpation in any of the abdominal quadrants, no palpable masses. Extremities: There is no peripheral edema present at the lower extremities. Peripheral Pulses: 3+ Radial (R). 3+ Radial (L). 3+ Dorsalis pedis (R). 3+ Dorsalis pedis(L) Skin: No rashes or pruritus, there is no sacral edema present at this time. Neurological: Intact cranial nerves with no focal neurologic deficits laboratory and microbiology Laboratory Tests 12/02/24 07:21 Test 12/02/24 07:21 Range/Units Serum Glucose 95 74-106 mg/dL Microbiology Date/Time Source Procedure Growth Status 11/27/24 16:45 Voided Urine Urine Culture - Final Complete 11/27/24 15:38 Blood Blood Culture - Final NO GROWTH AFTER 5 DAYS OF INCUBATION. Complete Problem List/Assessment/Plan Problem List/Assessment/Plan #Sepsis likely secondary to colitis - IV ceftriaxone changed to keflex 500mg po Q8 - urinalysis show no signs of UTI - Chest xray shows No acute intrathoracic abnormality. # Generalized weakness due to functional decline - IV fluids and nutritional support # fibromyalgia - Continue home meds #hyperlipidemia - continue home meds # hypertension - continue home meds #Paroxysmal Afib with secondary hypercoagulable state - Thomas Vasc score is 4 - HAS- BLED score is 2 - Amodarone and DOAC - Eliquis # Hyperbilirubinemia with transaminitis likely secondary to malignancy/ Liver cirrhosis - monitor labs - Abdominal CT shows Mainly left-sided mid and lower abdominal mesenteric fat stranding with associated subcentimeter lymph nodes which may represent mesenteric panniculitis in the right clinical setting with neoplasm /lymphatic congestion not excluded. Moderate amount of fecal material within the colon. Sigmoid diverticulosis without diverticulitis - Liver US shows: Hepatic steatosis /hepatic cirrhosis - hepatitis panel shows hep A positive PPI PPX: none DVT PPX: Eliquis Goals of care discussed with patient for 23 minutes:Full code Case discussed with Dr. Denise Plan discussed with: Patient Dietary Evaluation Review Comments: Continue current plan of care Expected Outcomes/Goals: To meet >75% estimated needs Fu 3-5 days Date of Service: Dec 03, 2024 Billing Provider: KARL DENISE DO Common Visit Codes: [id number] INP/OBS CARE(HIGH) VINICIO LARIOS RESIDENT Dec 03, 2024 17:22 KARL DENISE DO Dec 05, 2024 09:27
[2024-12-04] VITALS (8 sets, daily range): BP systolic 120–138; BP diastolic 53–68; PULSE 54–60; RESP 16–21; TEMP 96.8–98.2; O2SAT 92–97
--- NOTE | 2024-12-04 16:29 | DVHPNRES ---
Progress Note Date Seen: Dec 04, 2024 Resident Creating Document: BOOM CABALLERO RESIDENT Medical Necessity Reason Pt with a Central, PICC or Fol: No Subjective Review of Systems This is a 89-year-old female with past medical history of fibromyalgia, atrial fibrillation, hypertension, hyperlipidemia, uterine cancer, constipation, diastolic heart failure, arthritis, and recurrent UTIs came to the ED with chief complaint of generalized weakness, and fatigue which has worsened since the last 3 days. She also complains of poor appetite, lack of energy, insomnia, pain in her right ankle from a fall 3 months ago, she uses a electrical scooter for ambulation. She had a FL in May 2024 status post 2 stents, and a mitral valve clip placed, she was diagnosed with AFib 1 year ago, Her last UTI was 4 months ago and she uses nitrofurantoin daily. x-ray of the right foot was taken and shows There is no evidence of acute fracture or dislocation, Calcaneal spurring, The alignment is anatomical, There is no radiopaque foreign body. Liver ultrasound was taken and shows Hepatic steatosis /hepatic cirrhosis. Hepatitis panel and coagulation profile was ordered. Patient is seen at bedside. Patient appears comfortable, she is oriented in person, place, and time. She states she has some hip pain, but this resolves when she takes and acetaminophen or moves around. Patient is using cam boot and is able to weight bear. Denies any fever, cough, nausea, vomiting, diarrhea, headaches, dizziness and chest pain. She is pending placement for PT. Per social work today, they are awaiting response from [facility]. Objective vital signs Vital Sign Date Time Temp Pulse Resp B/P (MAP) Pulse Ox O2 Delivery O2 Flow Rate FiO2 12/04/24 12:45 96.8 54 19 120/68 (85) 94 96.8 12/04/24 07:45 Room Air* 0 21 Total Intake and Output 12/03/24 12/03/24 12/04/24 15:00 23:00 07:00 Intake Total 950 ml 350 ml Output Total 300 ml Balance 650 ml 350 ml medications Current Medications Medications Dose Ordered Sig/Nikhil Route Start Time Stop Time Status Last Admin Dose Admin Amiodarone HCl 200 mg DAILY PO 11/28/24 10:00 12/03/24 09:47 200 MG Apixaban 5 mg BID PO 11/27/24 22:00 12/04/24 10:29 5 MG Metoprolol Tartrate 50 mg BID PO 11/27/24 22:00 12/03/24 21:09 50 MG Atorvastatin Calcium 40 mg HS PO 11/27/24 22:00 12/03/24 21:08 40 MG Cephalexin 500 mg Q8HR PO 12/03/24 16:00 12/04/24 13:25 500 MG Examination General: Patient alert and oriented in person, place and time. Patient following commands. HEENT: Normocephalic, atraumatic, moist mucous membranes Respiratory/pulmonary: Clear lungs bilaterally, vesicular murmurs present in almost all lung hutchinson, no associated crackles or wheezes. Cardiovascular: Normal heart sounds S1 and S2 with no associated murmurs Abdomen: Abdomen nondistended, normal bowel sounds, tympanic on percussion, no pain to palpation in any of the abdominal, no palpable masses. Extremities: No deformaties, no peripheral edema present at the lower extremities, normal pulses Skin: No rashes or pruritus. Neurological: Intact cranial nerves with no focal neurologic deficits laboratory and microbiology Laboratory Tests 12/02/24 07:21 Test 12/02/24 07:21 Range/Units Serum Glucose 95 74-106 mg/dL Microbiology Date/Time Source Procedure Growth Status 11/27/24 16:45 Voided Urine Urine Culture - Final Complete 11/27/24 15:38 Blood Blood Culture - Final NO GROWTH AFTER 5 DAYS OF INCUBATION. Complete Problem List/Assessment/Plan Problem List/Assessment/Plan Assessment and Plan: Sepsis likely secondary to colitis - IV ceftriaxone changed to keflex 500mg po Q8 - urinalysis show no signs of UTI - Chest xray shows No acute intrathoracic abnormality. Generalized weakness due to functional decline - IV fluids and nutritional support Fibromyalgia - Continue home meds Hyperlipidemia - continue home meds Hypertension - continue home meds Paroxysmal Afib with secondary hypercoagulable state - Thomas Vasc score is 4 - HAS- BLED score is 2 - Amodarone and DOAC - Eliquis Hyperbilirubinemia with transaminitis likely secondary to malignancy/ Liver cirrhosis - monitor labs - Abdominal CT shows Mainly left-sided mid and lower abdominal mesenteric fat stranding with associated subcentimeter lymph nodes which may represent mesenteric panniculitis in the right clinical setting with neoplasm /lymphatic congestion not excluded. Moderate amount of fecal material within the colon. Sigmoid diverticulosis without diverticulitis - Liver US shows: Hepatic steatosis /hepatic cirrhosis - hepatitis panel shows hep A positive Patient is pending placement for PT. Case discussed with Dr. Denise. Goals of care discussed with the patient for over 20 minutes. She states she understands and agrees. Plan discussed with: Patient Dietary Evaluation Review Comments: Continue current plan of care Expected Outcomes/Goals: To meet >75% estimated needs Fu 3-5 days Date of Service: Dec 04, 2024 Billing Provider: KARL DENISE DO Common Visit Codes: [id number] INP/OBS CARE(HIGH) BOOM CABALLERO RESIDENT Dec 04, 2024 16:29 KARL DENISE DO Dec 05, 2024 09:28
[2024-12-04] MEDS: ACETAMINOPHEN 325 MG TAB PO ONE (16:35)
--- NOTE | 2024-12-04 17:09 | MEDREC ---
[facility] Intervention Section I [facility] Intervention: Review courses of therapy (IF SEGMENTAL COLITIS ASSOCIATED WITH DIVERTICULOSIS PLEASE CONSIDER TREATMENT WITH CIPROFLOXACIN AND METRONIDAZOLE FOR 10 TO 14 DAYS ) SILVER NICHOLE PHARMACIST Dec 04, 2024 17:09
[2024-12-05] VITALS (7 sets, daily range): BP systolic 122–140; BP diastolic 51–73; PULSE 54–63; RESP 16–20; TEMP 96.8–98.4; O2SAT 94–96
--- NOTE | 2024-12-05 08:54 | DVHPNRES ---
Progress Note Date Seen: Dec 05, 2024 Resident Creating Document: TIM IZQUIERDO RESIDENT Medical Necessity Reason Pt with a Central, PICC or Fol: No Subjective Review of Systems Ms. Galeas, a 89-year-old female with a complex medical history including fibromyalgia, chronic fatigue syndrome, mitral regurgitation, coronary artery disease May 2024, treated with two stents and a mitral clip, status post atrial fibrillation ablation, hepatic steatosis, hypertension, hyperlipidemia, uterine cancer, diastolic heart failure, arthritis, and recurrent UTIs presented to the ED with worsening generalized weakness and fatigue over the past three days. She also reports poor appetite, low energy, insomnia, and persistent right ankle pain from a fall three months ago, for which she uses a cam boot and an electric scooter for mobility. She had a myocardial infarction in , and was diagnosed with atrial fibrillation a year ago. She is pending physical therapy therapy , lives by herself with limited social support and social work coordinating with [employer]. Patient reports: No new complaints, Feels better Changes from previous H/P or p: No Changes Review of Systems: HEENT:Normal, CVS:Normal, RESPIRATORY:Normal, GI:Normal, :Normal, MSK:Normal, NEURO:Normal Objective vital signs Vital Sign Date Time Temp Pulse Resp B/P (MAP) Pulse Ox O2 Delivery O2 Flow Rate FiO2 12/05/24 05:00 97.8 54 19 122/69 (86) 96 97.8 12/04/24 20:00 Room Air* 0 21 Total Intake and Output 12/04/24 12/04/24 12/05/24 15:00 23:00 07:00 Intake Total 120 ml 670 ml 800 ml Output Total 650 ml Balance 120 ml 670 ml 150 ml medications Current Medications Medications Dose Ordered Sig/Nikhil Route Start Time Stop Time Status Last Admin Dose Admin Amiodarone HCl 200 mg DAILY PO 11/28/24 10:00 12/03/24 09:47 200 MG Apixaban 5 mg BID PO 11/27/24 22:00 12/04/24 21:16 5 MG Metoprolol Tartrate 50 mg BID PO 11/27/24 22:00 12/04/24 21:18 50 MG Atorvastatin Calcium 40 mg HS PO 11/27/24 22:00 12/04/24 21:17 40 MG Cephalexin 500 mg Q8HR PO 12/03/24 16:00 12/05/24 05:15 500 MG Examination: GENERAL:Normal, HEENT:Normal, NECK:Normal, LUNGS:Normal, CVS:Normal, ABDOMEN:Normal, MSK:Abnormal (4+ in all the extremities ), SKIN:Normal, NEURO:Normal, :Normal laboratory and microbiology Laboratory Tests 12/02/24 07:21 Test 12/02/24 07:21 Range/Units Serum Glucose 95 74-106 mg/dL Microbiology Date/Time Source Procedure Growth Status 11/27/24 16:45 Voided Urine Urine Culture - Final Complete 11/27/24 15:38 Blood Blood Culture - Final NO GROWTH AFTER 5 DAYS OF INCUBATION. Complete Labs and/or images reviewed: Labs reviewed by me, Image(s) reviewed by me Problem List/Assessment/Plan Problem List/Assessment/Plan #Colitis on oral abx: Abdominal CT shows Mainly left-sided mid and lower abdominal mesenteric fat stranding with associated subcentimeter lymph nodes which may represent mesenteric panniculitis in the right clinical setting with neoplasm /lymphatic congestion not excluded. Moderate amount of fecal material within the colon. #Sigmoid diverticulosis without diverticulitis: Avoid constipation, high-fiber diet to continue #At presentation Sepsis, due to above: Resolved , hemodynamically stable, afebrile. #Generalized deconditioning: Low mobility, Generalized weakness due to functional decline: Needs extensive physical therapy, placement pending, sw on board added ensure high-protein diet. Underwent physical therapy. #Fibromyalgia with chronic fatigue syndrome: Supportive treatment, started the patient on duloxetine 30 mg daily. #Hyperlipidemia: Home meds continue #essential, Hypertension: As per ACC/AHA guideline ideal blood pressure 140/90 or below continue medications. #Paroxysmal Afib with secondary hypercoagulable state: Thomas Vasc score is 4, HAS- BLED score is 2 continue Amiodarone 200 b.i.d., metoprolol tartrate 50 mg b.i.d. and Eliquis 5 mg b.i.d. #bradycardic in 50s: So far asymptomatic, patient on axel blockade with amiodarone and metoprolol 50 b.i.d., DC amiodarone, cut down on metoprolol 50 mg b.i.d.. As per RACE II trial heart rate 80 (rest)-110 (moderate activity) appropriate for lenient rate control. #Hepatic steatosis: Noted in ultrasound, #exposure to hepatitis A: Lab supportive. conservative treatment, check LFT, avoid hepatotoxics #Hyperbilirubinemia with transaminitis: likely secondary to malignancy/hepatosteatosis follow up LFTs, avoid hepatotoxics #history of recurrent UTI: during this admission UTI ruled out, no urinary symptoms, no history of resistant bacteria, previously was treated with nitrofurantoin history of Patient lives by herself at home, social work faculty member on board for placement to [place]. Discussed with the sw team expected discharge within 48 hours. Goals of care, and care plan discussed at bedside over 23 minutes. Patient is agreeable. Discussed with Dr. Thao. Plan discussed with: Patient, Other (primary team. RN ) Dietary Evaluation Review Comments: Continue current plan of care Expected Outcomes/Goals: To meet >75% estimated needs Fu 3-5 days Date of Service: Dec 05, 2024 Billing Provider: ROBERT THAO MD Common Visit Codes: [id number] INP/OBS CARE(MOD) TIM IZQUIERDO RESIDENT Dec 05, 2024 08:54 ROBERT THAO MD Dec 08, 2024 13:32
[2024-12-05] MEDS: Ensure HIGH Protein Chocolate 8oz Bottle PO SCH (12:15)
[2024-12-05] MEDS: METOPROLOL TARTRATE 25 MG TAB PO SCH (20:59)
[2024-12-06] VITALS (9 sets, daily range): BP systolic 129–155; BP diastolic 62–101; PULSE 57–69; RESP 17–19; TEMP 97–98.3; O2SAT 94–96
--- NOTE | 2024-12-06 16:54 | DVHPNRES ---
Progress Note Date Seen: Dec 06, 2024 Resident Creating Document: TIM IZQUIERDO RESIDENT Medical Necessity Reason Pt with a Central, PICC or Fol: No Subjective Patient reports: No new complaints Objective vital signs Vital Sign Date Time Temp Pulse Resp B/P (MAP) Pulse Ox O2 Delivery O2 Flow Rate FiO2 12/06/24 13:00 97.0 59 17 146/101 (116) 95 97.0 12/06/24 07:44 Room Air* 0 21 Total Intake and Output 12/05/24 12/05/24 12/06/24 15:00 23:00 07:00 Intake Total 700 ml 200 ml Balance 700 ml 200 ml medications Current Medications Medications Dose Ordered Sig/Nikhil Route Start Time Stop Time Status Last Admin Dose Admin Apixaban 5 mg BID PO 11/27/24 22:00 12/06/24 08:26 5 MG Atorvastatin Calcium 40 mg HS PO 11/27/24 22:00 12/05/24 20:58 40 MG Cephalexin 500 mg Q8HR PO 12/03/24 16:00 12/06/24 13:32 500 MG Enteral Nutritional Formula 240 ml TIDWM PO 12/05/24 12:00 12/06/24 12:00 240 ML Duloxetine HCl 30 mg DAILY PO 12/06/24 10:00 12/06/24 08:25 30 MG Examination: GENERAL:Normal, HEENT:Normal, NECK:Normal, LUNGS:Normal, CVS:Normal, ABDOMEN:Normal, MSK:Normal, SKIN:Normal, NEURO:Normal laboratory and microbiology Laboratory Tests 12/02/24 07:21 Test 12/02/24 07:21 Range/Units Serum Glucose 95 74-106 mg/dL Microbiology Date/Time Source Procedure Growth Status 11/27/24 16:45 Voided Urine Urine Culture - Final Complete 11/27/24 15:38 Blood Blood Culture - Final NO GROWTH AFTER 5 DAYS OF INCUBATION. Complete Labs and/or images reviewed: Labs reviewed by me, Image(s) reviewed by me Problem List/Assessment/Plan Problem List/Assessment/Plan #bradycardic in 50s: So far asymptomatic, patient on axel blockade with amiodarone and DC amiodarone + Metoprolol As per RACE II trial heart rate 80 (rest)-110 (moderate activity) appropriate for lenient rate control. #Paroxysmal Afib with secondary hypercoagulable state: Thomas Vasc score is 4, HAS- BLED score is 2 continue Amiodarone 200 b.i.d., metoprolol tartrate 50 mg b.i.d. cut to half and Eliquis 5 mg b.i.d. off of amio and metoprolol is dced. #Colitis on oral abx: Abdominal CT shows Mainly left-sided mid and lower abdominal mesenteric fat stranding with associated subcentimeter lymph nodes which may represent mesenteric panniculitis in the right clinical setting with neoplasm /lymphatic congestion not excluded. Moderate amount of fecal material within the colon. #Sigmoid diverticulosis without diverticulitis: Avoid constipation, high-fiber diet to continue #At presentation Sepsis, due to above: Resolved , hemodynamically stable, afebrile. #Generalized deconditioning: Low mobility, Generalized weakness due to functional decline: Needs extensive physical therapy, placement pending, sw on board added ensure high-protein diet. Underwent physical therapy. #Fibromyalgia with chronic fatigue syndrome: Supportive treatment, started the patient on duloxetine 30 mg daily. #Hyperlipidemia: Home meds continue #essential, Hypertension: As per ACC/AHA guideline ideal blood pressure 140/90 or below continue medications. #Hepatic steatosis: Noted in ultrasound, #exposure to hepatitis A: Lab supportive. conservative treatment, check LFT, avoid hepatotoxics #Hyperbilirubinemia with transaminitis: likely secondary to malignancy/hepatosteatosis follow up LFTs, avoid hepatotoxics #history of recurrent UTI: during this admission UTI ruled out, no urinary symptoms, no history of resistant bacteria, previously was treated with nitrofurantoin history of Patient lives by herself at home, social services coordinator on board for placement to [place]. Still pending placement to [facility]. Discussed with the sw team expected discharge within 48 hours. Continue PT. Goals of care, and care plan discussed at bedside over 21 minutes. Patient is agreeable. Discussed with Dr. Thao. Plan discussed with: Patient, Other (primary team. ) Dietary Evaluation Review Comments: Continue current plan of care Expected Outcomes/Goals: To meet >75% estimated needs Fu 3-5 days Date of Service: Dec 06, 2024 Billing Provider: ROBERT THAO MD Common Visit Codes: [id number] INP/OBS CARE(MOD) TIM IZQUIERDO RESIDENT Dec 06, 2024 16:54 ROBERT THAO MD Dec 08, 2024 13:43
[2024-12-07] VITALS (7 sets, daily range): BP systolic 120–149; BP diastolic 62–89; PULSE 58–69; RESP 16–20; TEMP 97.4–98.6; O2SAT 94–96
--- NOTE | 2024-12-07 09:38 | DVHDSRES ---
Discharge Summary Date of Admission Resident Creating Document: TIM IZQUIERDO RESIDENT Nov 27, 2024 at 16:39 Date of Discharge: Dec 02, 2024 Labs/Diagnostic Data: Laboratory Results Test 12/02/24 07:21 11/29/24 16:58 11/29/24 04:51 11/27/24 16:45 White Blood Count 7.1 10^3/uL (4.4-10.8) Red Blood Count 4.75 10^6/uL (4.0-5.20) Hemoglobin 13.2 g/dL (12.2-16.2) Hematocrit 39.4 % (36.0-46.0) Mean Corpuscular Volume 83.0 fL (80.0-100.0) Mean Corpuscular Hemoglobin 27.7 pg (28.0-32.0) Mean Corpuscular Hemoglobin Concent 33.4 g/dL (32.0-36.0) Red Cell Distribution Width 14.5 % (11.8-14.3) Platelet Count 249 10^3/uL (140-450) Mean Platelet Volume 8.9 fL (6.9-10.8) Neutrophils (%) (Auto) 77.8 % (37.0-80.0) Lymphocytes (%) (Auto) 10.4 % (10.0-50.0) Monocytes (%) (Auto) 8.3 % (0.0-12.0) Eosinophils (%) (Auto) 3.1 % (0.0-7.0) Basophils (%) (Auto) 0.4 % (0.0-2.0) Neutrophils # (Auto) 5.5 10 ^3/uL (1.6-8.6) Lymphocytes # (Auto) 0.7 10 ^3/uL (0.4-5.4) Monocytes # (Auto) 0.6 10 ^3/uL (0-1.3) Eosinophils # (Auto) 0.2 10 ^3/uL (0-0.8) Basophils # (Auto) 0 10 ^3/uL (0-0.2) Nucleated Red Blood Cells 0.1 % Sodium Level 140 mmol/L (136-145) Potassium Level 3.7 mmol/L (3.5-5.1) Chloride Level 106 mmol/L (98-107) Carbon Dioxide Level 27 mmol/L (20-31) Anion Gap 7 (5-15) Blood Urea Nitrogen 14 mg/dL (9-23) Creatinine 0.76 mg/dL (0.550-1.02) Glomerular Filtration Rate Calc 75 mL/min (>90) BUN/Creatinine Ratio 18.4 (10.0-20.0) Serum Glucose 95 mg/dL (74-106) Calcium Level 9.1 mg/dL (8.7-10.4) Total Bilirubin 0.6 mg/dL (0.2-1.0) Aspartate Amino Transferase (AST) 69 U/L (13-40) Alanine Aminotransferase (ALT) 92 U/L (7-40) Alkaline Phosphatase 63 U/L (46-116) Total Protein 6.2 g/dL (5.7-8.2) Albumin 3.9 g/dL (3.2-4.8) Prothrombin Time 13.8 sec (9.3-11.8) Prothrombin Time INR 1.34 (0.9-1.15) Activated Partial Thromboplast Time 33.1 SEC (24.5-34.5) Hepatitis A Antibody Total Positive (Negative) Hepatitis B Surface Antigen Negative (Negative) Hepatitis B Surface Antibody Negative (Negative) Hepatitis B Core Total Antibody Negative (Negative) Hepatitis C Antibody Negative (Negative) Urine Color Yellow (Yellow) Urine Clarity Turbid (Clear) Urine pH 5.5 (5.0-9.0) Urine Specific [place] 1.024 (1.001-1.035) Urine Protein 1+ (Negative) Urine Ketones Negative (Negative) Urine Blood Negative /uL (Negative) Urine Nitrite Negative (Negative) Urine Bilirubin Negative (Negative) Urine Urobilinogen 3 mg/dL (Negative) Urine Leukocyte Esterase Negative /uL (Negative) Urine RBC 2 /hpf (0 - 4) Urine Microscopic WBC 2 /HPF (0-5) Urine Squamous Epithelial Cells Few /hpf (<5) Urine Bacteria Few /hpf (None Seen) Urine Mucus Few (None Seen) Urine Glucose Normal mg/dL (Normal) Test 11/27/24 15:20 11/27/24 13:38 11/27/24 11:31 Lactic Acid Level 1.0 mmol/L (0.4-2.0) Troponin I High Sensitivity 3 ng/L (</=34) POC Glucose 137 mg/dl (70-106) Other Laboratory Tests 12/02/24 07:21 Condition at Discharge: Stable Final Diagnosis/Problems List generalized weakness Discharge Disposition: Home with Health Services Discharge Instruct/Medications Diet: Consistent carbohydrate, Cardiac 2g Na,low cholest Activity: Light activity Follow Up/Referral: Follow up with Discharge clinic in 1-2 weeks Medications: As per EMR Scheduled Amiodarone Hcl (Amiodarone Hcl), 200 MG PO DAILY Apixaban Base (Eliquis), 2.5 MG PO BID Atorvastatin Calcium (Lipitor), 40 MG PO DAILY, (Reported) Lisinopril (Lisinopril), 5 MG PO DAILY, (Reported) Metoprolol Tartrate (Metoprolol Tartrate), 50 MG PO BID, (Reported) Mirtazapine (Remeron), 0.5 TAB PO QPM Discharge Statement: "Patient was advised to return to the ER or call 911 if any headaches, dizziness, shortness of breath, chest pain, abdominal pain, bleeding, fevers, or worsening of medical condition. Patient was counseled about treatment plan, medications, possible side effects, patientverbalized understanding. All questions were answered to the best of my ability. This discharge took greater then 30 minutes in planning, reviewing documentation, counseling the patient, and discussing with other team members." ASSESSMENT ASSESSMENT Assessment generalized weakness TIM IZQUIERDO RESIDENT Dec 07, 2024 09:38
--- NOTE | 2024-12-07 16:30 | DVHPNRES ---
Progress Note Date Seen: Dec 07, 2024 Resident Creating Document: TIM IZQUIERDO RESIDENT Medical Necessity Reason Pt with a Central, PICC or Fol: No Subjective Patient reports: No new complaints Objective vital signs Vital Sign Date Time Temp Pulse Resp B/P (MAP) Pulse Ox O2 Delivery O2 Flow Rate FiO2 12/07/24 09:00 98.6 58 20 136/89 (105) 96 98.6 12/07/24 08:00 Room Air* 0 21 Total Intake and Output 12/06/24 12/06/24 12/07/24 15:00 23:00 07:00 Intake Total 300 ml 300 ml Balance 300 ml 300 ml medications Current Medications Medications Dose Ordered Sig/Nikhil Route Start Time Stop Time Status Last Admin Dose Admin Apixaban 5 mg BID PO 11/27/24 22:00 12/07/24 09:08 5 MG Atorvastatin Calcium 40 mg HS PO 11/27/24 22:00 12/06/24 21:37 40 MG Cephalexin 500 mg Q8HR PO 12/03/24 16:00 12/07/24 13:50 500 MG Enteral Nutritional Formula 240 ml TIDWM PO 12/05/24 12:00 12/07/24 12:00 240 ML Duloxetine HCl 30 mg DAILY PO 12/06/24 10:00 12/07/24 09:08 30 MG Examination GENERAL:Normal, HEENT:Normal, NECK:Normal, LUNGS:Normal, CVS:Normal, ABDOMEN:Normal, MSK:Normal, SKIN:Normal, NEURO:Normal laboratory and microbiology Laboratory Tests 12/02/24 07:21 Test 12/02/24 07:21 Range/Units Serum Glucose 95 74-106 mg/dL Microbiology Date/Time Source Procedure Growth Status 11/27/24 16:45 Voided Urine Urine Culture - Final Complete 11/27/24 15:38 Blood Blood Culture - Final NO GROWTH AFTER 5 DAYS OF INCUBATION. Complete Labs and/or images reviewed: Labs reviewed by me, Image(s) reviewed by me Problem List/Assessment/Plan Problem List/Assessment/Plan #bradycardic in 50s: As per RACE II trial heart rate 80 (rest)-110 (moderate activity) appropriate for lenient rate control. #Paroxysmal Afib with secondary hypercoagulable state: Thomas Vasc score is 4, HAS- BLED score is 2: Eliquis 5 mg b.i.d. dc tele. #Colitis on oral abx: Abdominal CT shows Mainly left-sided mid and lower abdominal mesenteric fat stranding with associated subcentimeter lymph nodes which may represent mesenteric panniculitis in the right clinical setting with neoplasm /lymphatic congestion not excluded. Moderate amount of fecal material within the colon. #Sigmoid diverticulosis without diverticulitis: Avoid constipation, high-fiber diet to continue #At presentation Sepsis, due to above: Resolved , hemodynamically stable, afebrile. #Generalized deconditioning: Low mobility, Generalized weakness due to functional decline: Needs extensive physical therapy, placement pending, sw on board added ensure high-protein diet. Underwent physical therapy. #Fibromyalgia with chronic fatigue syndrome: Supportive treatment, started the patient on duloxetine 30 mg daily. #Hyperlipidemia: Home meds continue #essential, Hypertension: As per ACC/AHA guideline ideal blood pressure 140/90 or below continue medications. #Hepatic steatosis: Noted in ultrasound, no symptoms or pain, #exposure to hepatitis A: Lab supportive. conservative treatment, LFT satisfactory, avoid hepatotoxics #Hyperbilirubinemia with transaminitis: likely secondary to malignancy/hepatosteatosis follow up LFTs, avoid hepatotoxics #history of recurrent UTI: during this admission UTI ruled out, no urinary symptoms, no history of resistant bacteria, previously was treated with nitrofurantoin history of Patient lives by herself at home, geriatric social worker on board for placement to [place]. Still pending placement to [facility]. Discussed with the sw team expected discharge within 48 hours. Continue PT. Goals of care, and care plan discussed at bedside over 23 minutes. Patient is agreeable. Discussed with Dr. Thao. Plan discussed with: Patient Dietary Evaluation Review Comments: Continue current plan of care Expected Outcomes/Goals: To meet >75% estimated needs Fu 3-5 days Date of Service: Dec 07, 2024 Billing Provider: ROBERT THAO MD Common Visit Codes: [id number] INP/OBS CARE(MOD) TIM IZQUIERDO Dec 07, 2024 16:30 ROBERT THAO MD Dec 08, 2024 14:08
[2024-12-08] VITALS (10 sets, daily range): BP systolic 115–159; BP diastolic 74–87; PULSE 66–81; RESP 16–19; TEMP 97.5–98.4; O2SAT 93–95
--- NOTE | 2024-12-08 18:33 | DVHPNRES ---
Progress Note Date Seen: Dec 08, 2024 Resident Creating Document: TIM IZQUIERDO RESIDENT Medical Necessity Reason Pt with a Central, PICC or Fol: No Subjective Patient reports: No new complaints Changes from previous H/P or p: No Changes Objective vital signs Vital Sign Date Time Temp Pulse Resp B/P (MAP) Pulse Ox O2 Delivery O2 Flow Rate FiO2 12/08/24 17:12 98.4 73 18 147/75 (99) 93 98.4 12/08/24 08:00 Room Air* 0 21 Total Intake and Output 12/07/24 12/07/24 12/08/24 15:00 23:00 07:00 Intake Total 200 ml 200 ml Output Total 400 ml Balance -200 ml 200 ml medications Current Medications Medications Dose Ordered Sig/Nikhil Route Start Time Stop Time Status Last Admin Dose Admin Apixaban 5 mg BID PO 11/27/24 22:00 12/08/24 09:08 5 MG Atorvastatin Calcium 40 mg HS PO 11/27/24 22:00 12/07/24 22:00 40 MG Cephalexin 500 mg Q8HR PO 12/03/24 16:00 12/08/24 13:33 500 MG Enteral Nutritional Formula 240 ml TIDWM PO 12/05/24 12:00 12/08/24 12:00 240 ML Duloxetine HCl 30 mg DAILY PO 12/06/24 10:00 12/08/24 09:08 30 MG Examination GENERAL:Normal, HEENT:Normal, NECK:Normal, LUNGS:Normal, CVS:Normal, ABDOMEN:Normal, MSK:Normal, SKIN:Normal, NEURO:Normal laboratory and microbiology Laboratory Tests 12/02/24 07:21 Test 12/02/24 07:21 Range/Units Serum Glucose 95 74-106 mg/dL Microbiology Date/Time Source Procedure Growth Status 11/27/24 16:45 Voided Urine Urine Culture - Final Complete 11/27/24 15:38 Blood Blood Culture - Final NO GROWTH AFTER 5 DAYS OF INCUBATION. Complete Labs and/or images reviewed: Labs reviewed by me, Image(s) reviewed by me Problem List/Assessment/Plan Problem List/Assessment/Plan #bradycardic in 50s: As per RACE II trial heart rate 80 (rest)-110 (moderate activity) appropriate for lenient rate control. #Paroxysmal Afib with secondary hypercoagulable state: Thomas Vasc score is 4, HAS- BLED score is 2: Eliquis 5 mg b.i.d. dc tele. #Colitis on oral abx: Abdominal CT shows Mainly left-sided mid and lower abdominal mesenteric fat stranding with associated subcentimeter lymph nodes which may represent mesenteric panniculitis in the right clinical setting with neoplasm /lymphatic congestion not excluded. Moderate amount of fecal material within the colon. #Sigmoid diverticulosis without diverticulitis: Avoid constipation, high-fiber diet to continue #At presentation Sepsis, due to above: Resolved , hemodynamically stable, afebrile. #Generalized deconditioning: Low mobility, Generalized weakness due to functional decline: Needs extensive physical therapy, placement pending, sw on board added ensure high-protein diet. Underwent physical therapy. #Fibromyalgia with chronic fatigue syndrome: Supportive treatment, started the patient on duloxetine 30 mg daily. #Hyperlipidemia: Home meds continue #essential, Hypertension: As per ACC/AHA guideline ideal blood pressure 140/90 or below continue medications. #Hepatic steatosis: Noted in ultrasound, no symptoms or pain, #exposure to hepatitis A: Lab supportive. conservative treatment, LFT satisfactory, avoid hepatotoxics #Hyperbilirubinemia with transaminitis: likely secondary to malignancy/hepatosteatosis follow up LFTs, avoid hepatotoxics #history of recurrent UTI: during this admission UTI ruled out, no urinary symptoms, no history of resistant bacteria, previously was treated with nitrofurantoin history of Patient lives by herself at home, manager social on board for placement to [place]. Still pending placement to [facility]. Discussed with the sw team expected discharge within 48 hours. Continue PT. Per [place] he will have a new bed available for the patient tomorrow. Discharge to [place] tomorrow. Goals of care, and care plan discussed at bedside over 23 minutes. Patient is agreeable. Discussed with Dr. Thao. Plan discussed with: Patient My Orders My Orders Orders - TIM IZQUIERDO RESIDENT Procedure Category Date Status Time Pt Request For Service PT 12/08/24 Logged 08:56 Dietary Evaluation Review Comments: Continue current plan of care Expected Outcomes/Goals: To meet >75% estimated needs Fu 3-5 days Sepsis reassessment post fluid Respiratory Pattern: Regular Date of Service: Dec 08, 2024 Billing Provider: ROBERT THAO MD Common Visit Codes: [id number] INP/OBS CARE(MOD) TIM IZQUIERDO RESIDENT Dec 08, 2024 18:33 ROBERT THAO MD Dec 12, 2024 08:43
[2024-12-09 01:00] VITALS: BP 131/65; PULSE 70; RESP 18; TEMP 98.2; O2SAT 94
[2024-12-09 05:00] VITALS: BP 145/76; PULSE 65; RESP 18; TEMP 98.1; O2SAT 94
[2024-12-09 08:00] VITALS: PULSE 86; RESP 16; O2SAT 95
--- NOTE | 2024-12-09 09:59 | DVHDSRES ---
Discharge Summary Date of Admission Resident Creating Document: TIM IZQUIERDO RESIDENT Nov 27, 2024 at 16:39 Date of Discharge: Dec 09, 2024 Admitting Diagnosis Generalized weakness Labs/Diagnostic Data: Laboratory Results Test 12/02/24 07:21 11/29/24 16:58 11/29/24 04:51 11/27/24 16:45 White Blood Count 7.1 10^3/uL (4.4-10.8) Red Blood Count 4.75 10^6/uL (4.0-5.20) Hemoglobin 13.2 g/dL (12.2-16.2) Hematocrit 39.4 % (36.0-46.0) Mean Corpuscular Volume 83.0 fL (80.0-100.0) Mean Corpuscular Hemoglobin 27.7 pg (28.0-32.0) Mean Corpuscular Hemoglobin Concent 33.4 g/dL (32.0-36.0) Red Cell Distribution Width 14.5 % (11.8-14.3) Platelet Count 249 10^3/uL (140-450) Mean Platelet Volume 8.9 fL (6.9-10.8) Neutrophils (%) (Auto) 77.8 % (37.0-80.0) Lymphocytes (%) (Auto) 10.4 % (10.0-50.0) Monocytes (%) (Auto) 8.3 % (0.0-12.0) Eosinophils (%) (Auto) 3.1 % (0.0-7.0) Basophils (%) (Auto) 0.4 % (0.0-2.0) Neutrophils # (Auto) 5.5 10 ^3/uL (1.6-8.6) Lymphocytes # (Auto) 0.7 10 ^3/uL (0.4-5.4) Monocytes # (Auto) 0.6 10 ^3/uL (0-1.3) Eosinophils # (Auto) 0.2 10 ^3/uL (0-0.8) Basophils # (Auto) 0 10 ^3/uL (0-0.2) Nucleated Red Blood Cells 0.1 % Sodium Level 140 mmol/L (136-145) Potassium Level 3.7 mmol/L (3.5-5.1) Chloride Level 106 mmol/L (98-107) Carbon Dioxide Level 27 mmol/L (20-31) Anion Gap 7 (5-15) Blood Urea Nitrogen 14 mg/dL (9-23) Creatinine 0.76 mg/dL (0.550-1.02) Glomerular Filtration Rate Calc 75 mL/min (>90) BUN/Creatinine Ratio 18.4 (10.0-20.0) Serum Glucose 95 mg/dL (74-106) Calcium Level 9.1 mg/dL (8.7-10.4) Total Bilirubin 0.6 mg/dL (0.2-1.0) Aspartate Amino Transferase (AST) 69 U/L (13-40) Alanine Aminotransferase (ALT) 92 U/L (7-40) Alkaline Phosphatase 63 U/L (46-116) Total Protein 6.2 g/dL (5.7-8.2) Albumin 3.9 g/dL (3.2-4.8) Prothrombin Time 13.8 sec (9.3-11.8) Prothrombin Time INR 1.34 (0.9-1.15) Activated Partial Thromboplast Time 33.1 SEC (24.5-34.5) Hepatitis A Antibody Total Positive (Negative) Hepatitis B Surface Antigen Negative (Negative) Hepatitis B Surface Antibody Negative (Negative) Hepatitis B Core Total Antibody Negative (Negative) Hepatitis C Antibody Negative (Negative) Urine Color Yellow (Yellow) Urine Clarity Turbid (Clear) Urine pH 5.5 (5.0-9.0) Urine Specific Sanders 1.024 (1.001-1.035) Urine Protein 1+ (Negative) Urine Ketones Negative (Negative) Urine Blood Negative /uL (Negative) Urine Nitrite Negative (Negative) Urine Bilirubin Negative (Negative) Urine Urobilinogen 3 mg/dL (Negative) Urine Leukocyte Esterase Negative /uL (Negative) Urine RBC 2 /hpf (0 - 4) Urine Microscopic WBC 2 /HPF (0-5) Urine Squamous Epithelial Cells Few /hpf (<5) Urine Bacteria Few /hpf (None Seen) Urine Mucus Few (None Seen) Urine Glucose Normal mg/dL (Normal) Test 11/27/24 15:20 11/27/24 13:38 11/27/24 11:31 Lactic Acid Level 1.0 mmol/L (0.4-2.0) Troponin I High Sensitivity 3 ng/L (</=34) POC Glucose 137 mg/dl (70-106) Other Laboratory Tests 12/02/24 07:21 Brief Hx & Hospital Course: Hospital Course: Ms. Galeas, an 89-year-old female presents to the emergency department with a three-day history of generalized weakness, accompanied by poor appetite and difficulty sleeping. She reports progressive decline in her ability to walk and perform activities of daily living, particularly since sustaining a right ankle fracture on September 27, 2024. She lives alone and is currently taking Eliquis. Her son reports a medical history of fibromyalgia, atrial fibrillation, diastolic heart failure, hypertension, hyperlipidemia, hearing impairment, and chronic urinary tract infections. Initial ED workup reveals elevated WBC and AST/ALT levels, with urinalysis pending. The patient is requesting health and social care teacher assistance for supportive placement, as she feels she can no longer live safely on her own. Past surgical history includes PTCA and right ankle surgery. Family history is reviewed and non-contributory. She denies smoking, alcohol, or illicit drug use. The patient was treated in hospital with planned discharge to SNF. Physical Exam at Discharge: GENERAL:Normal, HEENT:Normal, NECK:Normal, LUNGS:Normal, CVS:Normal, ABDOMEN:Normal, MSK: Right ankle/foot with tenderness and in boot, SKIN:Normal, NEURO:Normal Medical conditions treated in hospital: #Bradycardic in 50s; due to axel claudio, HR recovered #Paroxysmal Afib with secondary hypercoagulable state: Thomas Vasc score is 4, HAS- BLED score is 2 #Acute Colitis on oral abx #Sigmoid diverticulosis without diverticulitis #At presentation Sepsis, due to above #Generalized deconditioning needing PT #Fibromyalgia with chronic fatigue syndrome started on duloxetine #Hyperlipidemia: Home meds continue #essential, Hypertension: As per ACC/AHA guideline ideal blood pressure 140/90 or below continue medications. #Hepatic steatosis: Noted in ultrasound, no symptoms or pain, #exposure to hepatitis A #Hyperbilirubinemia with transaminitis #history of recurrent UTI Patient lives by herself at home, nursing home social worker on board for placement to [place] to Continue PT. Goals of care discussed with the patient for 20 minutes; full code Discharge plan discussed with the patient and the patient expressed agreement Discussed with Dr. Portillo. Consults/Reason for consult Orthopedic surgery for chronic right ankle pain Condition at Discharge: Fair Final Diagnosis/Problems List #Generalized Weakness Discharge Disposition: Detention Facility Discharge Instruct/Medications Diet: Consistent carbohydrate, Cardiac 2g Na,low cholest Activity: No Restrictions, As Tolerated Follow Up/Referral: Follow up with Discharge clinic in 1-2 weeks Medications: As per EMR Scheduled Amiodarone Hcl (Amiodarone Hcl), 200 MG PO DAILY Apixaban Base (Eliquis), 2.5 MG PO BID Atorvastatin Calcium (Lipitor), 40 MG PO DAILY, (Reported) Lisinopril (Lisinopril), 5 MG PO DAILY, (Reported) Metoprolol Tartrate (Metoprolol Tartrate), 50 MG PO BID, (Reported) Mirtazapine (Remeron), 0.5 TAB PO QPM Discharge Statement: "Patient was advised to return to the ER or call 911 if any headaches, dizziness, shortness of breath, chest pain, abdominal pain, bleeding, fevers, or worsening of medical condition. Patient was counseled about treatment plan, medications, possible side effects, patientverbalized understanding. All questions were answered to the best of my ability. This discharge took greater then 30 minutes in planning, reviewing documentation, counseling the patient, and discussing with other team members." ASSESSMENT ASSESSMENT Assessment #Generalized Weakness Addendum Addendum Addendum I was physically present for the willis portions of the service provided to patient by THE RESIDENT. I have reviewed the documentation, discussed the case with resident and agree with the resident's documentation except as noted. Also the patient's clinical case was discussed with the patient's nurse. This medical document was created using an electronic medical record system with computerized dictation system. Although this document has been carefully reviewed, there might still be some phonetic and typographical errors. These areas are purely typographical due to imperfections of the software programs, and do not reflect any compromise in the patient's medical care. Late signature. Date of Service: Dec 09, 2024 Billing Provider: PIOTR PORTILLO MD Common Visit Codes: 40465-VSY/OBS DISCH DAY >30min Secondary Visit Codes: 82200-[id number] CARE PLAN 30 MINUTES (20 minutes) TIM IZQUIERDO RESIDENT Dec 09, 2024 09:59 PIOTR PORTILLO MD Dec 11, 2024 06:35
[2024-12-09 10:10] VITALS: BP 134/72
[2024-12-09 13:00] VITALS: BP 146/73; PULSE 72; RESP 18; TEMP 97.8; O2SAT 94
[2024-12-09 17:00] VITALS: BP 141/77; PULSE 75; RESP 16; TEMP 98.3; O2SAT 95
== END 2024-12-09 19:25 | DRG 392 ==
LOC: ER 10:42 → OVERFLOW 16:39 → TELE-WESTW 21:55 → WEST WING 11-30 23:00
PROVIDERS: ADMIT Internal Medicine; ATTEND Emergency Medicine
DX: A09 Infectious gastroenteritis and colitis, unspecified (principal); B15.9 Hepatitis A without hepatic coma; D68.69 Other thrombophilia; I50.32 Chronic diastolic (congestive) heart failure; K57.30 Diverticulosis of large intestine without perforation or abscess without bleeding; I11.0 Hypertensive heart disease with heart failure; K74.60 Unspecified cirrhosis of liver; K76.0 Fatty (change of) liver, not elsewhere classified; E78.5 Hyperlipidemia, unspecified; K52.9 Noninfective gastroenteritis and colitis, unspecified; M79.7 Fibromyalgia; G89.29 Other chronic pain; R74.8 Abnormal levels of other serum enzymes; E80.6 Other disorders of bilirubin metabolism; I48.0 Paroxysmal atrial fibrillation; R00.1 Bradycardia, unspecified; G93.32 Myalgic encephalomyelitis/chronic fatigue syndrome; Z60.2 Problems related to living alone; Z87.440 Personal history of urinary (tract) infections; Z91.048 Other nonmedicinal substance allergy status; I25.2 Old myocardial infarction; Z79.01 Long term (current) use of anticoagulants
CPT/HCPCS: 36415; 71045; 73600; 74176; 76705; 80048; 80053; 81001; 82962; 83605; 84484; 85025; 85610; 85730; 86704; 86706; 86708; 86803; 87040; 87086; 87340; 93005; 97110; 97116; 97163; 97530; G0378; J3490

== ENCOUNTER 2024-12-12 09:42 | Outpatient (CLI) | payer OTHER ==
[~2024-12-12 09:42] MED LIST changes: +APIX2.5T PO; -APIX5TAB PO; -HYDR-2792 PO; +LISI2.5T47 PO; +MIRT-94 PO; -ROSU20TA14 PO; -TRIA75TA55 PO
[2024-12-12 10:51] LABS: Alkaline Phosphatase 63.0 U/L (46-116)
[2024-12-12 10:55] LABS: Alanine Aminotransferase 42.0 U/L (7-40); Bilirubin, Direct 0.6 mg/dL (<0.3)
== END 2024-12-12 17:00 | disposition home or self-care (01) ==
LOC: LAB 09:42
PROVIDERS: ATTEND Internal Medicine
DX: E78.2 Mixed hyperlipidemia (principal); Z79.899 Other long term (current) drug therapy
CPT/HCPCS: 36415; 82248; 83036; 84075; 84450; 84460